=== PATIENT | female | born 2005 | race Caucasian/White ===

== ENCOUNTER 2023-04-29 11:31 | Outpatient (OUT) | payer OTHER, SELFPAY ==
--- NOTE | 2023-04-29 11:48 | XR_ITS ---
The [address] [address] Patient Name: LOUIS MONROE MRN: [id number] date: 2005 Sex: F Assigned Patient Location: [facility] Current Patient Location: [facility] Accession/Order Number: [id number] Exam Date: 04/29/2023 11:51 Report Date: 04/29/2023 12:10 At the request of: SHAIKH DION Procedure: XR chest 2V EXAM: XR chest 2V HISTORY: Respiratory Illness J98.9 . Cough, shortness of breath and congestion for the past month. COMPARISON: 01/13/2020 TECHNIQUE: Upright PA and lateral chest x-ray FINDINGS: The heart is not enlarged and the vasculature is not distended. No acute infiltrate, effusion or pneumothorax is identified. The osseous structures are grossly intact. XR/XR chest 2V IMPRESSION: No acute infiltrate or evidence of cardiac decompensation. The overall appearance of the chest is unchanged. Electronically authenticated by: DOMENIC GREENE Date: 04/29/2023 12:10
== END 2023-04-29 11:32 | disposition home or self-care (01) ==
LOC: RAD 11:40
PROVIDERS: PCP Family Medicine; Visit Provider Internal Medicine
DX: J98.9 Respiratory disorder, unspecified (principal)
CPT/HCPCS: 71046

== ENCOUNTER 2024-07-01 10:16 | Outpatient (OUT) | payer OTHER, SELFPAY ==
--- OUTSIDE RECORDS SUMMARY | 2024-07-01 10:22 | XMS_ITS | CCD ---
Author Organization [facility] Care Team Providers Care Photoradio Operator Name Role Phone DR RENÉ HARO Primary Care Unavailable SONJA, DR GUTIÉRREZ Attending Unavailable SONJA, DR GUTIÉRREZ Consulting Unavailable SONJA, DR GUTIÉRREZ Admitting Unavailable TIM BARRETT Consulting Unavailable Nadia Luciaon Unavailable René Haro MD Primary Care Provider PARADISE VAZQUEZ Attending Unavailable PARADISE VAZQUEZ Attending Unavailable GRACE TORREZ Attending Unavailable GRACE TORREZ Attending Unavailable PARAIDSE VAZQUEZ Attending Unavailable PARADISE VAZQUEZ Attending Unavailable Allergies Allergy Classification Reported Allergen(s) Allergy Type Date of Onset Reaction(s) Facility (1 source) Levalbuterol Drug Allergy 01-13-20 [facility] (1 source) Penicillins Drug allergy (disorder) 01-13-20 20 [facility] (1 source) Sulfonamides (Antibiotic) Drug allergy (disorder) 01-13-20 20 [facility] (7 sources) Levalbuterol Drug Allergy 10-28-19 17 [facility] (7 sources) Penicillin G Drug Allergy 11-02-[address] [facility] (5 sources) Sulfamethoxazole / Trimethoprim Drug Allergy 07-05-19 24 [facility] Other (6 sources) Sulfamethoxazole Drug Allergy 11-02-19 [facility] (6 sources) Trimethoprim Drug Allergy 11-02-19 [facility] (4 sources) Spironolactone Drug Allergy 07-19-19 GI intolerance, Dizziness [facility] Work Phone: Medications Current Medications Medication Drug Class(es) Dates Sig (Normalized) Sig (Original) [id number] 200 actuat albuterol 0.09 mg/actuat metered dose inhaler (1 source) beta2-Adrenergic Agonist Start: 04-24-2023 take 2 puff(s) by inhalation four times daily as needed Albuterol Sulfate HFA 108 (90 Base) MCG/ACT 2 puffs Inhalation 4 times a day prn Patient understands she will only use this when absolutely necessary, her reaction to albuterol is a severe anxiety Apr, Active benzonatate 200 mg oral capsule (1 source) Non-narcotic Antitussive Start: 04-24-2023 take 1 capsule by mouth every eight hours Benzonatate 200 MG 1 capsule Orally Three times a day Apr, Active benzoyl peroxide 0.05 mg/mg topical gel (4 sources) benzoyl peroxide 5 % gel Apply topically Daily Active clindamycin 0.01 mg/mg topical gel (4 sources) Lincosamide Antibacterial Start: 01-14-2024 clindamycin (Clindagel) 1 % gel Indications: Acne vulgaris Apply topically Daily before meals 60 g 01/14/2024 Active dextromethorphan hydrobromide 15 mg / guaiFENesin 400 mg / pseudoephedrine hydrochloride 60 mg oral tablet (1 source) alpha-Adrenergic Agonist, Uncompetitive C-azfozb-K-aspartat e Receptor Antagonist, Sigma-1 Agonist Start: 03-27-2024 take 4 tablets by mouth every twenty-four hours Pseudoephedrine- Dm-Guaifenesin (Capmist Dm) 60-15-400 mg tablet Active 1 TAB PO EVERY 4-6 HOURS March 27, 2024 12:00am do not exceed 4 doses per 24 hrs doxycycline monohydrate 100 mg oral capsule (6 sources) Tetracycline-class Drug Start: 03-27-2024 take 100 mg by mouth once daily Doxycycline Monohydrate Active 100 MG PO Daily March 27, 2024 12:00am Start: 01-14-2024 take 1 capsule by mo [facility] twice daily doxycycline (Monodox) 100 MG capsule Indications: Acne vulgaris Take 1 capsule, by mouth, bid, 30 days 60 capsule 11 01/14/2024 Active Start: 04-24-2023 take 1 tablet by [facility] every twelve hours Doxycycline Hyclate 100 MG 1 tablet Orally Twice a day for 10 day(s) Apr, Active ferrous gluconate 324 mg oral tablet (6 sources) Start: 11-02-2023 take 324 mg by mouth once daily Ferrous Gluconate Active 324 MG PO Daily November 02, 2023 12:00am FLUoxetine 10 mg oral capsule (7 sources) Serotonin Reuptake Inhibitor Start: 11-02-2023 take 1 capsule by mouth once daily FLUoxetine (PROzac) 10 MG capsule Indications: Anxiety TAKE 1 CAPSULE BY MOUTH DAILY 90 capsule 3 01/14/2024 Active take 1 capsule by mo [facility] every twenty-four hours PROzac 10 MG 1 capsule Orally Once a day Active Iron (1 source) take 1 tablet by mouth once daily Iron 240 (27 Fe) MG 1 tablet Orally once a day Active predniSONE 20 mg oral tablet (2 sources) Start: 03-27-2024 take 20 mg by mouth twice daily Prednisone Active 20 MG PO Twice daily 03 18March 27, 2024 12:00am Start: 04-24-2023 take 1 tablet by sofya every twelve hours predniSONE 20 MG 1 tablet Orally bid for 5 day(s) Apr, Active tretinoin 0.25 mg/ml topical cream (4 sources) Retinoid Start: 01-14-2024 tretinoin (Ret in-A) 0.025 % cream Indications: Acne Vulgaris Apply 1 application topically at bedtime 45 g 11 01/14/2024 Active Completed/Discontinued Medications Medication Drug Class(es) Dates Sig (Normalized) Sig (Original) fluticasone propionate 0.05 mg/actuat metered dose nasal spray (1 source) Corticosteroid Start: 04-10-2023 take 2 spray(s) nasal route once daily Fluticasone Propionate 50 MCG/ACT 2 sprays Nasally Once a day for 14 day(s) Mar, Not-Taking minocycline 100 mg oral capsule (2 sources) Tetracycline-class Drug Start: 11-02-2023 End: 03-27-2024 take 100 mg by mouth twice daily Minocycline Discontinued 100 MG PO Twice daily November 02, 2023 12:00am March 27, 2024 12:29pm Problems Problem Classification Problem Date Documented Da te Episodic/Chronic Abdominal pain (1 source) Unspecified abdominal pain; Translations: [UNSPECIFIED ABDOMINAL PAIN] Onset: 12-16-2021 Episodic Anxiety disorders (2 sources) Generalized anxiety disorder; Translations: [Generalized anxiety disorder] Onset: 06-29-2024 06-29-2024 Chronic Asthma (1 source) Exacerbation of asthma; Translations: [Unspecified asthma with (acute) exacerbation] Chronic Chronic obstructive pulmonary disease and bronchiectasis (1 source) Bronchitis, not specified as acute or chronic Episodic Deficiency and other anemia (4 sources) Iron deficiency anemia; Translations: [Iron deficiency anemia, unspecified] Onset: 06-29-2024 06-29-2024 Episodic Esophageal disorders (1 source) Gastro-esophageal reflux disease without esophagitis; Translations: [GERD WITHOUT ESOPHAGITIS] Onset: 12-16-2021 Chronic Immunizations and screening for infectious disease (1 source) Contact with or exposure to other viral diseases; Translations: [Exposure to 2019 novel coronavirus] 03-27-2024 Episodic Malaise and fatigue (1 source) Other fatigue; Translations: [OTHER FATIGUE] Onset: 12-16-2021 Episodic Mood disorders (2 sources) Recurrent major depressive episodes, mild ; Translations: [Major depressive disorder, recurrent, mild] Onset: 06-29-2024 06-29-2024 Chronic Nausea and vomiting (3 sources) Nausea with vomiting, unspecified; Translations: [NAUSEA WITH VOMITING UNSPECIFIED] Onset: 12-11-2021 Episodic Other gastrointestinal disorders (1 source) Constipation, unspecified; Translations: [CONSTIPATION UNSPECIFIED] Onset: 12-16-2021 Episodic Other nervous system disorders (4 sources) Disorder of autonomic nervous system; Translations: [Disorder of the autonomic nervous system, unspecified] Onset: 06-29-2024 06-29-2024 Chronic Other non-traumatic joint disorders (4 sources) Joint pain; Translations: [Pain in unspecified joint] Onset: 06-29-2024 06-29-2024 Episodic Other skin disorders (2 sources) Acne vulgaris; Translations: [Acne vulgaris] Onset: 06-29-2024 06-29-2024 Episodic Other upper respiratory disease (1 source) Allergic rhinitis; Translations: [Allergic rhinitis, unspecified] Chronic Other upper respiratory infections (3 sources) Viral upper respiratory tract infection; Translations: [Acute upper respiratory infection, unspecified] 11-02-2023 Episodic Unclassified (1 source) CONTACT W/AND (SUSP) EXPOS COVID-19; Translations: [CONTACT W/AND (SUSP) EXPOS COVID-19] Onset: 12-16-2021 Results Test Name Value Interpretation Reference Range Facility No Panel InformationOrdered By: Romelia Kirk on 11-02-2023 Quick Strep (POC) [facility] CBC AUTO DIFFon 12-11-2021 BASO # 0.0 103/ul Normal 0.0-0.1 [facility] Comment on above: Performed By: #### C BC #### [facility] [address] [address] [address] Delphine Small Basophils/100 WBC (Bld) 0.5 % Normal 0.2-2.0 [facility] Comment on above: Performed By: #### C BC #### [facility] [address] [place] [address] Dr. Delphine Small EO # 0.2 103/ul Normal 0.0-0.7 [facility] Comment on above: Performed By: #### C BC #### [facility] [address] [address] [address] Delphine Small Eosinophils/100 WBC (Bld) 2.6 % Normal 0.9-7.0 [facility] Comment on above: Performed By: #### C BC #### [facility] [address] [place] [address] Dr. Delphine Small Erythrocyte distribution width (RBC) [Ratio] 11.6 % Normal 11.0-15.0 [facility] Comment on above: Performed By: #### C BC #### [facility] [address] [place] [address] Dr. Delphine Small Hematocrit (Bld) [Volume fraction] 38.6 % Normal 36.0-48.0 [facility] Comment on above: Performed By: #### C BC #### [facility] [address] [place] [address] Dr. Delphine Small Hemoglobin (Bld) [Mass/Vol] 13.1 g/dL Normal 12.0-16.0 [facility] Comment on above: Performed By: #### C BC #### [facility] [address] [place] [address] Dr. Delphine Small IG # 0.01 10e3/ul Normal 0.00-0.03 [facility] Comment on above: Performed By: #### C BC #### [facility] [address] [place] [address] Dr. Delphine Small IG % 0.2 % Normal 0.0-0.5 [facility] Comment on above: Performed By: #### C BC #### [facility] [address] [place] [address] Dr. Delphine Small LYMPH # 2.7 103/ul Normal 1.2-3.8 [facility] Comment on above: Performed By: #### C BC #### [facility] [address] [place] [address] Dr. Delphine Small Lymphocytes/100 WBC (Bld) 44.0 % Normal 20.5-60.0 [facility] Comment on above: Performed By: #### C BC #### [facility] [address] [place] [address] Dr. Delphine Small MANUAL DIFF REQ NO Normal [facility] Comment on above: Performed By: #### C BC #### [facility] [address] [place] [address] Dr. Delphine Small MCH (RBC) [Entitic mass] 30.2 pg Normal 26.7-34.0 [facility] Comment on above: Performed By: #### C BC #### [facility] [address] [place] [address] Dr. Delphine Small MCHC (RBC) [Mass/Vol] 33.9 g/dL Normal 29.9-35.2 [facility] Comment on above: Performed By: #### C BC #### [facility] [address] [place] [address] Dr. Delphine Small MCV (RBC) [Entitic vol] 88.9 fL Normal 81.0-99.0 [facility] Comment on above: Performed By: #### C BC #### [facility] [address] [place] [address] Dr. Delphine Small MONO # 0.4 103/ul Normal 0.3-0.8 [facility] Comment on above: Performed By: #### C BC #### [facility] [address] [place] [address] Dr. Delphine Small Monocytes/100 WBC (Bld) 6.9 % Normal 1.7-12.0 [facility] Comment on above: Performed By: #### C BC #### [facility] [address] [place] [address] Dr. Delphine Small NEUT # 2.9 103/ul Normal 1.4-6.5 [facility] Comment on above: Performed By: #### C BC #### [facility] [address] [place] [address] Dr. Delphine Small Neutrophils/100 WBC (Bld) 45.8 % Normal 43.0-75.0 [facility] Comment on above: Performed By: #### C BC #### [facility] [address] [place] [address] Dr. Delphine Small Platelet mean volume (Bld) [Entitic vol] 9.7 fL Normal 9.5-13.5 [facility] Comment on above: Performed By: #### C BC #### [facility] [address] [place] [address] Dr. Delphine Small PLT 182 103/ul Normal 150-450 [facility] Comment on above: Performed By: #### C BC #### [facility] [address] [place] [address] Dr. Delphine Small RBC 4.34 106/ul Normal 4.20-5.40 [facility] Comment on above: Performed By: #### C BC #### [facility] [address] [place] [address] Dr. Delphine Small WBC 6.2 103/ul Normal 4.0-11.0 [facility] Comment on above: Performed By: #### C BC #### [facility] [address] [place] [address] Dr. Delphine Small [facility] SARS-CoV-2 (COVID-19) RNA RUDY+probe Ql (Unsp spec) Not detected Normal NOT DETECTED [facility] Comment on above: Result Comment: When diagnostic testing is negative, the possibility of a false negative should be considered in the context of a patient's recent exposures and the presence of clinical signs and symptoms consistent with SARS-CoV-2. This test is not yet approved or cleared by the [place] FDA. When there are no FDA-approved or cleared tests available, and other criteria are met, FDA can make tests available under an emergency access mechanism called an Emergency Use Authorization (EUA). The EUA for this test is supported by the [place] of Health and Human Service's declaration that circumstances exist to justify the emergency use of in vitro diagnostics for the detection and/or diagnosis of the virus that causes COVID-19. This EUA will remain in effect for the duration of the COVID-19 declaration justifying emergency of IVDs, unless it is terminated or revoked by the FDA (after which the test may no longer be used). Performed By: #### C VDTB #### [facility] [address] [place] [address] Dr. Delphine Small PROF 14(COMP METB)on 022 Albumin [Mass/Vol] 3.8 g/dL Normal 3.4-5.0 [facility] Comment on above: Performed By: #### C MP #### [facility] [address] [place] [address] Dr. Delphine Small Albumin/Globulin [Mass ratio] 1.1 {ratio} Normal [facility] Comment on above: Performed By: #### C MP #### [facility] [address] [place] [address] Dr. Delphine Small ALP [Catalytic activity/Vol] 77 U/L Normal 46-116 [facility] Comment on above: Performed By: #### C MP #### [facility] [address] [place] [address] Dr. Delphine Small ALT [Catalytic activity/Vol] 24 U/L Normal 14-59 [facility] Comment on above: Performed By: #### C MP #### [facility] [address] [place] [address] Dr. Delphine Small Anion gap [Moles/Vol] 11.8 mmol/L Normal [facility] Comment on above: Performed By: #### C MP #### [facility] [address] [address] [address] Delphine Small AST [Catalytic activity/Vol] 16 U/L Normal 15-37 [facility] Comment on above: Performed By: #### C MP #### [facility] [address] [address] [address] Delphine Small Bilirubin [Mass/Vol] 0.8 mg/dL Normal 0.2-1.0 [facility] Comment on above: Performed By: #### C MP #### [facility] [address] [address] [address] Delphine Small Calcium [Mass/Vol] 8.6 mg/dL Normal 8.5-10.1 [facility] Comment on above: Performed By: #### C MP #### [facility] [address] [address] [address] Delphine Small Chloride [Moles/Vol] 103 mmol/L Normal 98-107 [facility] Comment on above: Performed By: #### C MP #### [facility] [address] [address] [address] Delphine Small CO2 [Moles/Vol] 27.8 mmol/L Normal 21.0-32.0 [facility] Comment on above: Performed By: #### C MP #### [facility] [address] [address] [address] Delphine Small Creatinine [Mass/Vol] 0.70 mg/dL Normal 0.55-1.02 [facility] Comment on above: Performed By: #### C MP #### [facility] [address] [address] [address] Delphine Small EGFR-AF JORDANIAN >60 Normal >=60 [facility] Comment on above: Performed By: #### C MP #### [facility] [address] [address] [address] Delphine Small EGFR-NON AF JORDANIAN >60 Normal >=60 [facility] Comment on above: Performed By: #### C MP #### [facility] [address] [address] [address] Delphine Small Globulin (S) [Mass/Vol] 3.6 g/dL Normal T [facility] Comment on above: Performed By: #### C MP #### [facility] [address] [address] [address] Delphine Small Glucose [Mass/Vol] 94 mg/dL Normal 74-106 [facility] Comment on above: Performed By: #### C MP #### [facility] [address] [address] [address] Delphine Small Potassium [Moles/Vol] 3.6 mmol/L Normal 3.5-5.1 [facility] Comment on above: Performed By: #### C MP #### [facility] [address] [address] [address] Delphine Small Protein [Mass/Vol] 7.4 g/dL Normal 6.4-8.2 [facility] Comment on above: Performed By: #### C MP #### [facility] [address] [address] [address] Delphine Small Sodium [Moles/Vol] 139 mmol/L Normal 136-145 [facility] Comment on above: Performed By: #### C MP #### [facility] [address] [address] [address] Delphine Small Urea nitrogen [Mass/Vol] 10.0 mg/dL Normal 6.4-19.3 [facility] Comment on above: Performed By: #### C MP #### [facility] [address] [address] [address] Delphine Small Urea nitrogen/Creatinine [Mass ratio] 14.3 mg/mg Normal [facility] Comment on above: Performed By: #### C MP #### [facility] [address] [address] [address] Delphine Small XR ABD FLAT UP_PA Osbaldo 12-11 XR ABD FLAT UP_PA CH ACUTE ABDOMINAL SERIES HISTORY: Abdominal pain TECHNIQUE: A single view of the chest and 2 views of the abdomen and pelvis are submitted for review. COMPARISON: None. FINDINGS: Chest x-ray: The lungs are adequately expanded. Interstitial opacity in the right lower lobe. There is no evidence for effusion. The cardiomediastinal silhouette measures within normal limits. Pulmonary vascularity is unremarkable. Osseous structures are within normal limits for age.. Abdomen: There is no evidence of free air.. The bowel gas pattern is nonobstructive. There are no abnormal calcifications. Osseous structures are within normal limits. IMPRESSION: Chest x-ray: Airspace opacity in the right lower lobe. Please correlate for pneumonia versus atelectasis. Abdomen: 1. Nonobstructive bowel gas pattern. 2. Moderateretention of stool. Electronically authenticated by: TIM BARRETT Date: 2021-12-11 21:29 Normal [facility] Vital Signs Date Time Vital Sign Value Performing Clinician Facility 06-29-2024 13:15-0500 Body mass index (BMI) [Ratio] 29.74 kg/m2 René Haro MD Work Phone: [facility] 06-29-2024 13:15-0500 Body temperature 97.3 [degF] René Haro MD Work Phone: [facility] 06-29-2024 13:15-0500 Body weight 72.58 kg René Haro MD Work Phone: [facility] 06-29-2024 13:15-0500 Diastolic blood pressure 64 mm[Hg] René Haro MD Work Phone: [facility] 06-29-2024 13:15-0500 Heart rate 83 /min René Haro MD Work Phone: [facility] 06-29-2024 13:15-0500 SaO2% (BldA) [Mass fraction] 100 % René Haro MD Work Phone: [facility] 06-29-2024 13:15-0500 Systolic blood pressure 102 mm[Hg] René Haro MD Work Phone: [facility] 03-27-2024 12:26-0400 Body height 157.48 cm [facility] 03-27-2024 12:26-0400 Body mass index (BMI) [Ratio] 28.3 kg/m2 [facility] 03-27-2024 12:26-0400 Body temperature 98.2 [degF] [facility] 03-27-2024 12:26-0400 Body weight 70.3 kg [facility] 03-27-2024 12:26-0400 Diastolic blood pressure 71 mm[Hg] [facility] 03-27-2024 12:26-0400 Heart rate 80 /min [facility] 03-27-2024 12:26-0400 Respiratory rate 18 /min [facility] 03-27-2024 12:26-0400 SaO2% (BldA) [Mass fraction] 99 % [facility] 03-27-2024 12:26-0400 Systolic blood pressure 101 mm[Hg] [facility] 11-02-2023 18:09-0400 Body height 157.48 cm [facility] 11-02-2023 18:09-0400 Body mass index (BMI) [Ratio] 28.2 kg/m2 [facility] 11-02-2023 18:09-0400 Body temperature 99 [degF] [facility] 11-02-2023 18:09-0400 Body weight 69.96 kg [facility] 11-02-2023 18:09-0400 Heart rate 115 /min [facility] 11-02-2023 18:09-0400 Respiratory rate 18 /min [facility] 11-02-2023 18:09-0400 SaO2% (BldA) [Mass fraction] 98 % [facility] 04-24-2023 12:35-0500 Body height 157.48 cm Nadia Luciano Other [employer] Other 04-24-2023 12:35-0500 Body mass index (BMI) [Ratio] 26.48 kg/m2 Nadia Luciano Other [employer] Other 04-24-2023 12:35-0500 Body temperature 98.1 [degF] Nadia Luciano Other [employer] Other 04-24-2023 12:35-0500 Body weight 65.68 kg Nadia Luciano Other [employer] Other 04-24-2023 12:35-0500 Respiratory rate 18 /min Nadia Luciano Other [employer] Other 04-24-2023 12:35-0500 SaO2% (BldA) [Mass fraction] 97 % Nadia Luciano Other [employer] Other Encounters Encounter Date Encounter Type Care Provider Facility Start: 06-29-2024 End: 06-29-2024 Bamboo flowsheet René Haro MD Work Phone: [facility] Start: 06-29-2024 End: 06-29-2024 Bamboo flowsheet René Haro MD Work Phone: [facility] Start: 06-29-2024 End: 06-29-2024 Office outpatient visit 25 minutes René Haro MD Work Phone: [facility] Comment on above: Autonomic dysfunctio n (Primary Dx); Arthralgia, unspecified joint; Iron deficiency anemia, unspecified iron deficiency anemia type; Annual physical exam Start: 06-29-2024 End: 06-29-2024 Patient encounter procedure René Haro MD Work Phone: [facility] Start: 05-15-2024 End: 05-15-2024 Bamboo flowsheet Paradise SANTANA Work Phone: [facility] Start: 05-15-2024 End: 05-15-2024 Bamboo flowsheet Paradise SANTANA Work Phone: [facility] Start: 05-15-2024 End: 05-15-2024 ambulatory PARADISE VAZQUEZ Not Available Start: 03-27-2024 End: 03-27-2024 ambulatory [facility] Work Phone: Start: 03-27-2024 End: 03-27-2024 Patient encounter procedure [facility] Physician [facility] Work Phone: Start: 01-14-2024 End: 01-14-2024 ambulatory PARADISE L ELISA Not Available Start: 12-09-2023 End: 12-09-2023 ambulatory GRACE TORREZ Not Available Start: 11-17-2023 End: 11-17-2023 ambulatory GRACE TORREZ Not Available Start: 11-02-2023 End: 11-02-2023 ambulatory [facility] Work Phone: Start: 11-02-2023 End: 11-02-2023 Patient encounter procedure [facility] Work Phone: Start: 10-04-2023 End: 10-04-2023 ambulatory PARADISE VAZQUEZ Not Available Start: 07-05-2023 End: 07-05-2023 ambulatory PARADISE L ELISA Not Available Start: 04-24-2023 End: 04-24-2023 ambulatory Nadia Luciano Other [facility] Other Start: 04-24-2023 Office outpatient vi sit 15 minutes Nadia Luciano [facility] Start: 12-11-2021 End: 12-12-[address] RENÉ HARO Facility:H1 Procedures Date Procedure Procedure Detail Performing Clinician Start: 11-02-2023 Quick Strep (POC) Plan of Treatment Date Care Activity Detail Author Start: 12-04-2024 End: 12-04-2024 Patient encounter procedure 12/04/2024 10:30 AM EDT Office Visit [facility] [address] [place] [phone] Paradise Vazquez, PA [address] [place] [address] [facility] Start: 06-29-2024 End: 06-29-2025 Basic metabolic 1998 panel - Serum or Plasma Basic metabolic panel Lab Routine Arthralgia, unspecified joint Annual physical exam Expected: 06/29/2024 (Approximate), Expires: 06/29/[address] [facility] Comment on above: Expected: 06/29/2024 (Approximate), Expires: 06/29/2025 Start: 06-29-2024 End: 06-29-2025 CBC W Auto Differential panel - Blood CBC and differential Lab Routine Annual physical exam Expected: 06/29/2024 (Approximate), Expires: 06/29/[address] [facility] Comment on above: Expected: 06/29/2024 (Approximate), Expires: 06/29/2025 Start: 06-29-2024 End: 06-29-2025 Erythrocyte sedimentation rate Sedimentation rate, automated Lab Routine Arthralgia, unspecified joint Expected: 06/29/2024 (Approximate), Expires: 06/29/[address] [facility] Work Phone: Comment on above: Expected: 06/29/2024 (Approximate), Expires: 06/29/2025 Start: 06-29-2024 End: 06-29-2025 Ferritin [Mass/volume] in Serum or Plasma Ferritin Lab Routine Iron deficiency anemia, unspecified iron deficiency anemia type Expected: 06/29/2024 (Approximate), Expires: 06/29/[address] [facility] Comment on above: Expected: 06/29/2024 (Approximate), Expires: 06/29/2025 Start: 06-29-2024 End: 06-29-2025 Hepatic function 2000 panel - Serum or Plasma Hepatic function panel Lab Routine Annual physical exam Expected: 06/29/2024 (Approximate), Expires: 06/29/[address] [facility] Comment on above: Expected: 06/29/2024 (Approximate), Expires: 06/29/2025 Start: 06-29-2024 End: 06-29-2025 Iron and Iron binding capacity panel - Serum or Plasma Iron and TIBC Lab Routine Iron deficiency anemia, unspecified iron deficiency anemia type Expected: 06/29/2024 (Approximate), Expires: 06/29/2025 [facility] Comment on above: Expected: 06/29/2024 (Approximate), Expires: 06/29/2025 Start: 06-29-2024 End: 06-29-2025 Nuclear Ab [Titer] in Serum by Immunofluorescence NGOZI Lab Routine Arthralgia, unspecified joint Expected: 06/29/2024 (Approximate), Expires: 06/29/2025 [facility] Comment on above: Expected: 06/29/2024 (Approximate), Expires: 06/29/2025 Start: 06-29-2024 End: 06-29-2025 Rheumatoid factor [Units/volume] in Serum or Plasma Rheumatoid factor Lab Routine Arthralgia, unspecified joint Expected: 06/29/2024 (Approximate), Expires: 06/29/2025 [facility] Comment on above: Expected: 06/29/2024 (Approximate), Expires: 06/29/2025 Start: 06-29-2024 End: 06-29-2025 TSH W/REFLEX TO FT4 TSH W/REFLEX TO FT4 Lab Routine Annual physical exam Expected: 06/29/2024 (Approximate), Expires: 06/29/2025 [facility] Comment on above: Expected: 06/29/2024 (Approximate), Expires: 06/29/2025 Start: 06-29-2024 End: 06-29-2025 Urate [Mass/volume] in Serum or Plasma Uric acid Lab Routine Arthralgia, unspecified joint Expected: 06/29/2024 (Approximate), Expires: 06/29/2025 [facility] Comment on above: Expected: 06/29/2024 (Approximate), Expires: 06/29/2025 Start: 06-29-2024 End: 06-29-2024 Patient encounter procedure 06/29/2024 1:15 PM EST Office Visit [facility] [address] [place] [address] René Haro MD [address] [place] [address] Arrived [facility] Comment on above: Arrived Start: 02-13-2024 Influenza vaccination Influenza Vacc ine (#1) [facility] Immunizations Immunization Date Immunization Notes Care Provider Fa cility 11-28-2019 meningococcal oligosaccharide (groups A, C, Y and W-135) diphtheria toxoid conjugate vaccine (MCV4O) Paradise SANTANA Work Phone: [facility] 06-27-2015 hepatitis A vaccine, pediatric/adolescent dosage, 2 dose schedule Paradise Vazquez PA Work Phone: [facility] 12-25-2014 hepatitis A vaccine, pediatric/adolescent dosage, 2 dose schedule Paradise SANTANA Work Phone: [facility] 12-25-2014 meningococcal oligosaccharide (groups A, C, Y and W-135) diphtheria toxoid conjugate vaccine (MCV4O) Paradise SANTANA Work Phone: [facility] 12-25-2014 tetanus toxoid, redu law diphtheria toxoid, and acellular pertussis vaccine, adsorbed Paradise Vazquez PA Work Phone: [facility] 12-25-2014 varicella virus vaccine Jessa Vazquez PA Work Phone: [facility] 04-21-2013 influenza virus vacc ine, live, attenuated, for intranasal use Paradise SANTANA Work Phone: [facility] 04-21-2013 influenza virus vacc ine, unspecified formulation Paradise SANTANA Work Phone: [facility] 11-15-2007 diphtheria, tetanus toxoids and acellular pertussis vaccine Paradise Vazquez PA Work Phone: [facility] 11-15-2007 poliovirus vaccine, inactivated Paradise SANTANA Work Phone: [facility] 10-11-2004 diphtheria, tetanus toxoids and acellular pertussis vaccine, unspecified formulation Paradise Vazquez PA Work Phone: [facility] 10-11-2004 measles, mumps and r ubella virus vaccine Paradise SANTANA Work Phone: [facility] 07-11-2004 haemophilus influenz ae type b vaccine, conjugate unspecified formulation Paradise Vazquez PA Work Phone: [facility] 07-11-2004 measles, mumps and r ubella virus vaccine Paradise Vazquez PA Work Phone: [facility] 04-04-2004 varicella virus vaccine Jessa Vazquez PA Work Phone: [facility] 2003 diphtheria, tetanus toxoids and acellular pertussis vaccine, unspecified formulation Paradise Vazquez PA Work Phone: [facility] 2003 haemophilus influenz ae type b vaccine, conjugate unspecified formulation Paradise Vazquez PA Work Phone: [facility] 2003 hepatitis B vaccine, pediatric or pediatric/adolescent dosage Paradise Vazquez PA Work Phone: [facility] 2003 poliovirus vaccine, unspecified formulation Paradise Vazquez PA Work Phone: [facility] 2003 diphtheria, tetanus toxoids and acellular pertussis vaccine, unspecified formulation Paradise Vazquez PA Work Phone: [facility] 2003 haemophilus influenz ae type b vaccine, conjugate unspecified formulation Paradise Vazquez PA Work Phone: [facility] 2003 pneumococcal conjuga te vaccine, 7 valent Paradisehuey Vazquez PA Work Phone: [facility] 2003 poliovirus vaccine, unspecified formulation Paradise Pedersonans PA Work Phone: [facility] 2003 diphtheria, tetanus toxoids and acellular pertussis vaccine, unspecified formulation Paradise Elisa PA Work Phone: [facility] 2003 haemophilus influenz ae type b vaccine, conjugate unspecified formulation Paradise Elisa PA Work Phone: [facility] 2003 hepatitis B vaccine, pediatric or pediatric/adolescent dosage Paradisehuey Pedersonans PA Work Phone: [facility] 2003 pneumococcal conjuga te vaccine, 7 valent Paradise SANTANA Work Phone: [facility] 2003 poliovirus vaccine, unspecified formulation Paradise SANTANA Work Phone: [facility] 2003 hepatitis B vaccine, pediatric or pediatric/adolescent dosage Paradise SANTANA Work Phone: [facility] Payers Date Payer Category Payer Private Health Insurance [facility] [id number] 2022 Unknown [id number] 2003 Unknown [id number] 2003 Unknown [id number] 2003 Unknown [id number] [id number] 2003 Unknown [id number] [id number] 2003 Unknown [id number] [id number] 2003 Unknown [id number] [id number] 1978 Unknown [id number] 1959 Unknown [id number] Medicaid [employer] [id number] Social History Date Type Detail Facility Unknown if ever smoked [facility] Other Start: 01-14-2024 End: 06-29-2024 Sex Assigned At [facility] [employer] Other Start: 07-05-2023 End: 11-02-2023 Tobacco smoking status NHIS Never smoked tobacco (finding) [facility] Start: 2003 Sex Assigned At Female F [facility] Start: 07-05-2023 Tobacco use and exposure Smokeless tobacco non-user [facility] Start: 01-14-2024 End: 06-29-2024 Alcoholic beverage intake Lifetime non-drinker (finding) [facility] Start: 01-14-2024 End: 06-29-2024 History of Social function [facility] Start: 2003 Sex assigned at Not on file [facility] History of Present illness Narrative 06-29-2024 René Haro MD - 06/29/2024 2:00 PM Daija Haro MD - 06/29/2024 2:00 PM Daija Haro MD - 06/29/2024 1:15 PM EST Note Date & Type Note Facility 06-29-2024 History of Presen t illness Narrative Associated Problem(s): Arthralgia Severe pain and unclear etiology. Check labs. Use OTC PRN. Associated Problem(s): Autonomic dysfunction Describing autonomic dysfunction and likely NCS. Increased fluid and salt intake. Be cautious with position changes. If worsens can try florinef. Images from the original note were not included. Subjective Patient ID: Annette Malcolm is a 19 y.o. female who presents for Dizziness (Losing balance ) and Extremity Weakness (In legs and hands ). C/o dizzy spells for about a year but worse over past few weeks. No sensation of motion of spinning. Feels very lightheaded like will pass out. At times feels like shutting down and can have vision changes such as slanted vision or black on sides of vision. Episodes typically occur when standing or walking. Few times have noticed while sitting. Episodes typically last few seconds to several minutes. Not notice heart racing or skipping during an episode. 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 C/o increased pain all over. Pain in arms, legs, back, and neck. Pain worse at night and if laying down. Not tried OTC. Review of Systems Respiratory: Negative for cough, shortness of breath and wheezing. Cardiovascular: Negative for chest pain and palpitations. Gastrointestinal: Negative for abdominal pain, diarrhea, nausea and vomiting. Genitourinary: Negative for dysuria. Objective Physical Exam Constitutional: General: She is not in acute distress. Appearance: Normal appearance. HENT: Head: Normocephalic. Right Ear: Tympanic membrane normal. Left Ear: Tympanic membrane normal. Eyes: Extraocular Movements: Extraocular movements intact. Pupils: Pupils are equal, round, and reactive to light. Cardiovascular: Rate and Rhythm: Normal rate and regular rhythm. Heart sounds: No murmur heard. No friction rub. No gallop. Pulmonary: Effort: Pulmonary effort is normal. Breath sounds: Normal breath sounds. No wheezing, rhonchi or rales. Abdominal: General: Bowel sounds are normal. There is no distension. Palpations: Abdomen is soft. Tenderness: There is no abdominal tenderness. There is no guarding or rebound. Musculoskeletal: Cervical back: Neck supple. Right lower leg: No edema. Left lower leg: No edema. Neurological: Mental Status: She is alert. Assessment/Plan Problem List Items Addressed This Visit Arthralgia Severe pain and unclear etiology. Check labs. Use OTC PRN. Relevant Orders Sedimentation rate, automated NGOZI Rheumatoid factor Basic metabolic panel Uric acid Autonomic dysfunction - Primary Describing autonomic dysfunction and likely NCS. Increased fluid and salt intake. Be cautious with position changes. If worsens can try florinef. Iron deficiency anemia Relevant Orders Iron and TIBC Ferritin Other Visit Diagnoses Annual physical exam Relevant Orders Basic metabolic panel CBC and differential Hepatic function panel TSH W/REFLEX TO FT4 documented in this encounter [facility] Evaluation note 04-24-2023 Note Date & Type Note Facility 04-24-2023 Evaluation note Encounter Date Diagnosis Assessment Notes Apr, Bronchitis (ICD-10 - J40) Acute bronchitis home care material was printed Plenty fluids, get plenty of rest. Continue home medications as prescribed. Take the doxycycline and prednisone as prescribed until gone. Use your albuterol inhaler as prescribed for severe shortness of breath or cough. Take the benzonatate capsules as prescribed as needed for cough. Take Tylenol or Motrin as needed for aches pains or fevers. Follow-up with your family physician if no improvement in 2 to 3 days [employer] Other Chief complaint+Reason for visit Narrative Note Date & Type Note Facility Chief complaint+Reason for v isit Narrative Reason for Visit Contact with and (suspected) exposure to covid-19 [facility] Work Phone: Evaluation note Note Date & Type Note Facility Evaluation note Diagnosis Onset Date Viral URI with cough acute [facility] Work Phone: Evaluation note Note Date & Type Note Facility Evaluation note Diagnosis Onset Date Contact with and (suspected) exposure to covid-19 noneactive [facility] Work Phone: Evaluation note Note Date & Type Note Facility Evaluation note Diagnosis Autonomic dysfunction- Primary Arthralgia, unspecified joint Iron deficiency anemia, unspecified iron deficiency anemia type Annual physical exam Routine general medical examination at a health care facility documented in this encounter [facility] History general Narrative - Reported Note Date & Type Note Facility History general Narrative - Reported Type Medical History Gastroesophageal reflux disease Medical History Asthma Medical History iron deficiency Surgical History wisdom teeth Hospitalization History rotovirus, dehydration 2 003 [employer] Other Summary Purpose Family History No Family History Records FoundNo Family History Records Found Advance Directives Advance Directive Response Recorded Date/ Time Advance Directives No November 01 6:01pm Chief Complaint and Reason for Visit Chief Complaint Sore throat, ear stephania n, congestion Reason for Visit Viral URI with cough Additional Source Comments INFORMATION SOURCE (unrecogn ized section and content) DATE CREATED AUTHOR 01/11/2022 [facility] DATE CREATED AUTHOR AUTHOR'S ORGANDEEPA ATION 05/16/2024 [facility] EPIC REASON FOR VISIT (unrecogniz ed section and content) Reason Comments Dizziness Losing balance Extremity Weakness In legs and hands Care Teams (unrecognized sec tion and content) Team Status: Active Member Role Status Dates René Haro MD Primary Care Provider Active Team Status: Inactive Member Role Status Dates Romelia Kirk , KIGNSTON Attending Provider Active Start: November 02, 2023 End: November 02, 2023 René Haro MD Primary Care Provider Active S tart: November 02, 2023 End: November 02, 2023 Team Status: Inactive Member Role Status Dates René Haro MD Primary Care Provider Active S tart: March 27, 2024 End: March 27, 2024 Mahnaz Trivedi APRN Attending Provider Active Start: March 27, 2024 End: March 27, 2024 [employer] Operator Relationship Specialty Start Date End Date René Haro MD [address] [place] [phone] PCP - General Family Medicine 04/14/23 Photoradio Operator Relationship Specialty Start Date End Date René Haro MD [address] [place] [phone] PCP - General Family Medicine 04/14/23 [employer] Operator Relationship Specialty Start Date End Date René Haro MD [address] [place] [phone] PCP - General Family Medicine 04/14/23 Goals (unrecognized section and content) Goals may be documented in a n alternate section FOR RECORDS PERTAINING TO PATIENTS WHO ARE OR HAVE BEEN ENROLLED IN A CHEMICAL DEPENDENCY/SUBSTANCEABUSE PROGRAM, SOME INFORMATION MAY BE OMITTED. This clinical summary was aggregated from multiple sources. Caution should be exercised in using it in the provision of clinical care. This summary normalizes information from multiple sources, and as a consequence, information in this document may materially change the coding, format and clinical context of patient data. In addition, data may be omitted in some cases. CLINICAL DECISIONS SHOULD BE BASED ON THE PRIMARY CLINICAL RECORDS. [facility] [employer] [facility]. provides no warranty or guarantee of the accuracy or completeness of information in this document.
[2024-07-01 11:05] LABS: Basophils Absolute Auto 0.1 10^3/uL (0.0-0.1); Eosinophils Absolute Auto 0.5 10^3/uL (0.0-0.7); Eosinophils Percent Auto 7.2 % (0.9-7.0); Hematocrit 41.4 % (36.0-48.0); Hemoglobin 14.1 g/dL (12.0-16.0); Immature Granulocytes Abs Auto 0.02 10^3/uL (0.00-0.03); Immature Granulocytes Pct Auto 0.3 % (0.0-0.5); Lymphocytes Absolute Auto 2.4 10^3/uL (1.2-3.8); Mean Corpuscular HGB Conc 34.1 g/dL (29.9-35.2); Mean Corpuscular Hemoglobin 29.6 pg (26.7-34.0); Mean Corpuscular Volume 86.8 fL (81.0-99.0); Mean Platelet Volume 8.8 fL (9.5-13.5); Monocytes Absolute Auto 0.4 10^3/uL (0.3-0.8); Monocytes Percent Auto 5.5 % (1.7-12.0); Neutrophils Absolute Auto 3.7 10^3/uL (1.4-6.5); Platelet Count 229 10^3/uL (150-450); Red Blood Count 4.77 10^6/uL (4.20-5.40); Red Cell Distribution Width 11.6 % (11.0-15.0); White Blood Count 7.1 10^3/uL (4.0-11.0)
[2024-07-01 11:26] LABS: Erythrocyte Sedimentation Rate 18 mm/hr (<=20)
[2024-07-01 11:35] LABS: Percent Iron Saturation 31.6 %
[2024-07-01 11:48] LABS: Alanine Aminotransferase 59 U/L (14-59); Albumin Globulin Ratio 1.1; Albumin Level 4.2 g/dL (3.4-5.0); Alkaline Phosphatase 73 U/L (46-116); Anion Gap 13.2; Aspartate Amino Transferase 48 U/L (15-37); BUN Creatinine Ratio 13.5; Bilirubin Direct 0.2 mg/dL (0.0-0.2); Bilirubin Total 0.9 mg/dL (0.2-1.0); Calcium 9.5 mg/dL (8.5-10.1); Carbon Dioxide 29.3 mmol/L (21.0-32.0); Chloride 102 mmol/L (98-107); Estimated GFR (African America >60 (>=60 mL/min/1.73m^2); Estimated GFR (Non-African Ame >60 (>=60 mL/min/1.73m^2); Globulin 3.8 g/dL; Glucose 95 mg/dL (74-106); Potassium 3.5 mmol/L (3.5-5.1); Sodium 141 mmol/L (136-145); TSH W/ REFLEX FT4 1.097 uIU/mL (0.358-3.740); Uric Acid 4.7 mg/dL (2.6-6.0)
[2024-07-02 09:11] LABS: Rheumatoid Factor (RF) 10.2 IU/mL (<14.0)
[2024-07-04 12:08] LABS: Antinuclear Antibodies, IFA Positive (.)
== END 2024-07-01 10:17 | disposition home or self-care (01) ==
PROVIDERS: PCP Family Medicine; Visit Provider Family Medicine
DX: Z00.00 Encounter for general adult medical examination without abnormal findings (principal); M25.50 Pain in unspecified joint; D50.9 Iron deficiency anemia, unspecified
CPT/HCPCS: 36415; 80048; 80076; 82728; 83540; 83550; 84443; 84550; 85025; 85652; 86038; 86431

== ENCOUNTER 2024-07-09 13:09 | Emergency (ER) | payer OTHER, SELFPAY ==
[2024-07-09] VITALS (15 sets, daily range): BP systolic 91–146; BP diastolic 57–87; PULSE 62–97; TEMP 36.9; O2SAT 97–100; BMI 30.2
--- OUTSIDE RECORDS SUMMARY | 2024-07-09 13:15 | XMS_ITS | CCD ---
Author Organization [facility] Care Team Providers Care Senior Windows Administrator Name Role Phone DR RENÉ HARO Primary Care Unavailable SONJA, DR GUTIÉRREZ Attending Unavailable SONJA, DR GUTIÉRREZ Consulting Unavailable SONJA, DR GUTIÉRREZ Admitting TIM Vivas Consulting Unavailable Nadia Luciano Unavailable René Haro MD Primary Care Provider PARADISE PÉREZ Attending Unavailable PARADISE PÉREZ Attending Unavailable GRACE TORREZ Attending Unavailable GRACE TORREZ Attending Unavailable PARADISE PÉREZ Attending Unavailable PARADISE PÉREZ Attending Unavailable RENÉ HARO Attending Unavailable Allergies Allergy Classification Reported Allergen(s) Allergy Type Date of Onset Reaction(s) Facility (1 source) Levalbuterol Drug Allergy 01-13-20 [facility] (1 source) Penicillins Drug allergy (disorder) 01-13-20 20 [facility] (1 source) Sulfonamides (Antibiotic) Drug allergy (disorder) 01-13-20 20 [facility] (9 sources) Levalbuterol Drug Allergy 10-28-19 17 [facility] (9 sources) Penicillin G Drug Allergy 11-02-19 made her a [facility] (7 sources) Sulfamethoxazole / Trimethoprim Drug Allergy 07-05-19 [facility] Other (8 sources) Sulfamethoxazole Drug Allergy 11-02-19 [facility] (8 sources) Trimethoprim Drug Allergy 11-02-19 [facility] (6 sources) Spironolactone Drug Allergy 07-19-19 GI intolerance, Dizziness [facility] Work Phone: Medications Current Medications Medication Drug Class(es) Dates Sig (Normalized) Sig (Original) [id number] 200 actuat albuterol 0.09 mg/actuat metered dose [...] Active benzoyl peroxide 0.05 mg/mg topical gel (6 sources) benzoyl peroxide 5 % gel Apply topically Daily Active clindamycin 0.01 mg/mg topical gel (6 sources) Lincosamide Antibacterial Start: 01-14-2024 clindamycin (Clindagel) 1 % gel Indications: Acne vulgaris Apply topically Daily before meals 60 g 01/14/2024 Active dextromethorphan hydrobromide 15 mg / guaiFENesin 400 mg / pseudoephedrine hydrochloride 60 mg oral tablet (1 source) alpha-Adrenergic Agonist, Uncompetitive M-okzafy-F-aspartat e Receptor Antagonist, Sigma-1 Agonist Start: 03-27-2024 take 4 tablets by mouth every twenty-four hours Pseudoephedrine- Dm-Guaifenesin (Capmist Dm) 60-15-400 mg tablet Active 1 TAB PO EVERY 4-6 HOURS March 27, 2024 12:00am do not exceed 4 doses per 24 hrs doxycycline monohydrate 100 mg oral capsule (8 sources) Tetracycline-class Drug Start: 03-27-2024 take 100 mg by mouth once daily Doxycycline Monohydrate Active 100 MG PO Daily March 27, 2024 12:00am Start: 01-14-2024 take 1 capsule by mo [facility] twice daily doxycycline (Monodox) 100 MG capsule Indications: Acne vulgaris Take 1 capsule, by mouth, bid, 30 days 60 capsule 11 01/14/2024 Active Start: 04-24-2023 [facility] Doxycycline Hyclate 100 MG 1 tablet Orally Twice a day for 10 day(s) Apr, Active ferrous gluconate 324 mg oral tablet (8 sources) Start: 11-02-2023 take 324 mg by mouth once daily Ferrous Gluconate Active 324 MG PO Daily November 02, 2023 12:00am FLUoxetine 10 mg oral capsule (9 sources) Serotonin Reuptake Inhibitor Start: 11-02-2023 take 1 capsule by mouth once daily FLUoxetine (PROzac) 10 MG capsule Indications: Anxiety TAKE 1 CAPSULE BY MOUTH DAILY 90 capsule 3 01/14/2024 Active take 1 capsule by mo [facility] every twenty-four hours PROzac 10 MG 1 [...] 12:00am Start: 04-24-2023 take 1 tablet by [facility] every twelve hours predniSONE 20 MG 1 tablet Orally bid for 5 day(s) Apr, Active tretinoin 0.25 mg/ml topical cream (6 sources) Retinoid Start: 01-14-2024 tretinoin (Ret in-A) [...] ABDOMINAL PAIN] Onset: 12-16-2021 Episodic Anxiety disorders (4 sources) Generalized anxiety disorder; Translations: [Generalized anxiety disorder] Onset: 06-29-2024 06-29-2024 Chronic Asthma (1 source) Exacerbation of asthma; Translations: [Unspecified asthma with (acute) exacerbation] Chronic Chronic obstructive pulmonary disease and bronchiectasis (1 source) Bronchitis, not specified as acute or chronic Episodic Deficiency and other anemia (6 sources) Iron deficiency anemia; Translations: [Iron deficiency anemia, unspecified] Onset: 06-29-2024 06-29-2024 Episodic Esophageal disorders (1 source) Gastro-esophageal reflux disease without esophagitis; Translations: [GERD WITHOUT ESOPHAGITIS] Onset: 12-16-2021 Chronic Immunizations and screening for infectious disease (4 sources) Contact with or exposure to other viral diseases; Translations: [Exposure to 2019 novel coronavirus] Onset: 07-04-2024 03-27-2024 Episodic Malaise and fatigue (1 source) Other fatigue; Translations: [OTHER FATIGUE] Onset: 12-16-2021 Episodic Mood disorders (4 sources) Recurrent major depressive episodes, mild ; Translations: [Major depressive disorder, recurrent, mild] Onset: 06-29-2024 06-29-2024 Chronic Nausea and vomiting (3 sources) Nausea with vomiting, unspecified; Translations: [NAUSEA WITH VOMITING UNSPECIFIED] Onset: 12-11-2021 Episodic Other gastrointestinal disorders (1 source) Constipation, unspecified; Translations: [CONSTIPATION UNSPECIFIED] Onset: 12-16-2021 Episodic Other nervous system disorders (6 sources) Disorder of autonomic nervous system; Translations: [Disorder of the autonomic nervous system, unspecified] Onset: 06-29-2024 06-29-2024 Chronic Other non-traumatic joint disorders (6 sources) Joint pain; Translations: [Pain in unspecified joint] Onset: 06-29-2024 06-29-2024 Episodic Other skin disorders (4 sources) Acne vulgaris; Translations: [Acne vulgaris] Onset: [...] Test Name Value Interpretation Reference Range Facility ALL SED RATEon 07-01-2024 TBH SED RATE 18 NINF [facility] No Panel InformationOrdered By: Romelia Kirk on 11-02-2023 Quick Strep (POC) [facility] CBC AUTO DIFFon 12-11-2021 BASO # 0.0 103/ul Normal 0.0-0.1 [facility] Comment on above: Performed By: #### C BC #### [facility] [address] [address] [address] Delphine Small Basophils/100 WBC (Bld) 0.5 % Normal 0.2-2.0 [facility] Comment on above: Performed By: #### C BC #### [facility] [address] [address] [address] Delphine Small EO # 0.2 103/ul Normal 0.0-0.7 [facility] Comment on above: Performed By: #### C BC #### [facility] [address] [address] [address] Delphine Small Eosinophils/100 WBC (Bld) 2.6 % Normal 0.9-7.0 [facility] Comment on above: Performed By: #### C BC #### [facility] [address] [address] [address] Delphine Small Erythrocyte distribution width (RBC) [Ratio] 11.6 % Normal 11.0-15.0 [facility] Comment on above: Performed By: #### C BC #### [facility] [address] [address] [address] Delphine Small Hematocrit (Bld) [Volume fraction] 38.6 % Normal 36.0-48.0 [facility] Comment on above: Performed By: #### C BC #### [facility] [address] [address] [address] Delphine Small Hemoglobin (Bld) [Mass/Vol] 13.1 g/dL Normal 12.0-16.0 [facility] Comment on above: Performed By: #### C BC #### [facility] [address] [place] [address] Dr. Delphine Small IG # 0.01 10e3/ul Normal 0.00-0.03 [facility] Comment on above: Performed By: #### C BC #### [facility] [address] [place] [address] Dr. Delphine Small IG % 0.2 % Normal 0.0-0.5 [facility] Comment on above: Performed By: #### C BC #### [facility] [address] [place] [address] Dr. Delphine Small LYMPH # 2.7 103/ul Normal 1.2-3.8 [facility] Comment on above: Performed By: #### C BC #### [facility] [address] [place] [address] Dr. Delphine Small Lymphocytes/100 WBC (Bld) 44.0 % Normal 20.5-60.0 [facility] Comment on above: Performed By: #### C BC #### [facility] [address] [place] [address] Dr. Delphine Small MANUAL DIFF REQ NO Normal [facility] Comment on above: Performed By: #### C BC #### [facility] [address] [place] [address] Dr. Delphine Small MCH (RBC) [Entitic mass] 30.2 pg Normal 26.7-34.0 [facility] Comment on above: Performed By: #### C BC #### [facility] [address] [place] [address] Dr. Delphine Small MCHC (RBC) [Mass/Vol] 33.9 g/dL Normal 29.9-35.2 [facility] Comment on above: Performed By: #### C BC #### [facility] [address] [place] [address] Dr. Delphine Small MCV (RBC) [Entitic vol] 88.9 fL Normal 81.0-99.0 [facility] Comment on above: Performed By: #### C BC #### [facility] [address] [place] [address] Dr. Delphine Small MONO # 0.4 103/ul Normal 0.3-0.8 [facility] Comment on above: Performed By: #### C BC #### [facility] [address] [place] [address] Dr. Delphine Small Monocytes/100 WBC (Bld) 6.9 % Normal 1.7-12.0 [facility] Comment on above: Performed By: #### C BC #### [facility] [address] [place] [address] Dr. Delphine Small NEUT # 2.9 103/ul Normal 1.4-6.5 [facility] Comment on above: Performed By: #### C BC #### [facility] [address] [place] [address] Dr. Delphine Small Neutrophils/100 WBC (Bld) 45.8 % Normal 43.0-75.0 [facility] Comment on above: Performed By: #### C BC #### [facility] [address] [place] [address] Dr. Delphine Small Platelet mean volume (Bld) [Entitic vol] 9.7 fL Normal 9.5-13.5 [facility] Comment on above: Performed By: #### C BC #### [facility] [address] [place] [address] Dr. Delphine Small PLT 182 103/ul Normal 150-450 [facility] Comment on above: Performed By: #### C BC #### [facility] [address] [place] [address] Dr. Delphine Small RBC 4.34 106/ul Normal 4.20-5.40 [facility] Comment on above: Performed By: #### C BC #### [facility] [address] [place] [address] Dr. Delphine Small WBC 6.2 103/ul Normal 4.0-11.0 [facility] Comment on above: Performed By: #### C BC #### [facility] [address] [place] [address] Dr. Delphine Small Covid-19 PCR (CVDTB)on 11-14 SARS-CoV-2 (COVID-19) RNA RUDY+probe Ql (Unsp spec) Not detected Normal NOT DETECTED [facility] Comment on above: Result Comment: When [...] for this test is supported by the Client Sales And Service Officer of Health and Human Service's declaration that [...] used). Performed By: #### C VDTB #### [facility] [address] [place] [address] Dr. Delphine Small PROF 14(COMP METB)on 022 Albumin [Mass/Vol] 3.8 g/dL Normal 3.4-5.0 [facility] Comment on above: Performed By: #### C MP #### [facility] [address] [place] [address] Dr. Delphine Small Albumin/Globulin [Mass ratio] 1.1 {ratio} Normal [facility] Comment on above: Performed By: #### C MP #### [facility] [address] [place] [address] Dr. Delphine Small ALP [Catalytic activity/Vol] 77 U/L Normal 46-116 [facility] Comment on above: Performed By: #### C MP #### [facility] [address] [place] [address] Dr. Delphine Small ALT [Catalytic activity/Vol] 24 U/L Normal 14-59 [facility] Comment on above: Performed By: #### C MP #### [facility] [address] [address] [address] Delphine Small Anion gap [Moles/Vol] 11.8 mmol/L Normal Th [facility] Comment on above: Performed By: #### C MP #### [facility] [address] [address] [address] Delphine Small AST [Catalytic activity/Vol] 16 U/L Normal 15-37 [facility] Comment on above: Performed By: #### C MP #### [facility] [address] [address] [address] Delphine Small Bilirubin [Mass/Vol] 0.8 mg/dL Normal 0.2-1.0 [facility] Comment on above: Performed By: #### C MP #### [facility] [address] [address] [address] Delphine Small Calcium [Mass/Vol] 8.6 mg/dL Normal 8.5-10.1 [facility] Comment on above: Performed By: #### C MP #### [facility] [address] [address] [address] Delphine Small Chloride [Moles/Vol] 103 mmol/L Normal 98-107 [facility] Comment on above: Performed By: #### C MP #### [facility] [address] [address] [address] Delphine Small CO2 [Moles/Vol] 27.8 mmol/L Normal 21.0-32.0 [facility] Comment on above: Performed By: #### C MP #### [facility] [address] [address] [address] Delphine Small Creatinine [Mass/Vol] 0.70 mg/dL Normal 0.55-1.02 [facility] Comment on above: Performed By: #### C MP #### [facility] [address] [address] [address] Delphine Small EGFR-AF AUSTRALIAN >60 Normal >=60 [facility] Comment on above: Performed By: #### C MP #### [facility] [address] [address] [address] Delphine Small EGFR-NON AF AUSTRALIAN >60 Normal >=60 [facility] Comment on above: Performed By: #### C MP #### [facility] [address] [address] [address] Delphine Small Globulin (S) [Mass/Vol] 3.6 g/dL Normal [facility] Comment on above: Performed By: #### C MP #### [facility] [address] [address] [address] Delphine Small Glucose [Mass/Vol] 94 mg/dL Normal 74-106 [facility] Comment on above: Performed By: #### C MP #### [facility] [address] [place] [address] Dr. Delphine Small Potassium [Moles/Vol] 3.6 mmol/L Normal 3.5-5.1 [facility] Comment on above: Performed By: #### C MP #### [facility] [address] [place] [address] Dr. Delphine Small Protein [Mass/Vol] 7.4 g/dL Normal 6.4-8.2 [facility] Comment on above: Performed By: #### C MP #### [facility] [address] [place] [address] Dr. Delphine Small Sodium [Moles/Vol] 139 mmol/L Normal 136-145 [facility] Comment on above: Performed By: #### C MP #### [facility] [address] [place] [address] Dr. Delphine Small Urea nitrogen [Mass/Vol] 10.0 mg/dL Normal 6.4-19.3 [facility] Comment on above: Performed By: #### C MP #### [facility] [address] [address] [address] Delphine Small Urea nitrogen/Creatinine [Mass ratio] 14.3 mg/mg Normal [facility] Comment on above: Performed By: #### C MP #### [facility] [address] [place] [address] Dr. Delphine Small XR ABD FLAT UP_PA [...] by: TIM BARRETT Date: 2021-12-11 21:29 Normal [facility] Vital Signs Date Time Vital Sign Value Performing Clinician Facility 06-29-2024 13:15-0500 Body mass index (BMI) [Ratio] 29.74 kg/m2 René Haro MD Work Phone: [facility] 06-29-2024 13:15-0500 Body temperature 97.3 [degF] René Haro MD Work Phone: [facility] 06-29-2024 13:15-0500 Body weight 72.58 kg René Haro MD Work Phone: [facility] 06-29-2024 13:15-0500 Diastolic blood pressure 64 mm[Hg] René Haro MD Work Phone: [facility] 06-29-2024 13:15-0500 Heart rate 83 /min René Haro MD Work Phone: [facility] 06-29-2024 13:15-0500 SaO2% (BldA) [Mass fraction] 100 % René Haro MD Work Phone: [facility] 06-29-2024 13:15-0500 Systolic blood pressure 102 mm[Hg] René Haro MD Work Phone: [facility] 03-27-2024 12:26-0400 Body height 157.48 cm [facility] 03-27-2024 12:26-0400 Body mass index (BMI) [Ratio] 28.3 kg/m2 [facility] 03-27-2024 12:26-0400 Body temperature 98.2 [degF] [facility] 03-27-2024 12:26-0400 Body weight 70.3 kg [facility] 03-27-2024 12:26-0400 Diastolic blood pressure 71 mm[Hg] [facility] 03-27-2024 12:26-0400 Heart rate 80 /min [facility] 03-27-2024 12:26-0400 Respiratory rate 18 /min [facility] 03-27-2024 12:26-0400 SaO2% (BldA) [Mass fraction] 99 % [facility] 03-27-2024 12:26-0400 Systolic blood pressure 101 mm[Hg] [facility] 11-02-2023 18:09-0400 Body height 157.48 cm [facility] 11-02-2023 18:09-0400 Body mass index (BMI) [Ratio] 28.2 kg/m2 [facility] 11-02-2023 18:09-0400 Body temperature 99 [degF] [facility] 11-02-2023 18:09-0400 Body weight 69.96 kg [facility] 11-02-2023 18:09-0400 Heart rate 115 /min [facility] 11-02-2023 18:09-0400 Respiratory rate 18 /min [facility] 11-02-2023 18:09-0400 SaO2% (BldA) [Mass fraction] 98 % [facility] 04-24-2023 12:35-0500 Body height 157.48 cm Nadia Luciano Other [facility] Other 04-24-2023 12:35-0500 Body mass index (BMI) [Ratio] 26.48 kg/m2 Nadia Luciano Other [facility] Other 04-24-2023 12:35-0500 Body temperature 98.1 [degF] Nadia Luciano Other [facility] Other 04-24-2023 12:35-0500 Body weight 65.68 kg Nadia Luciano Other [facility] Other 04-24-2023 12:35-0500 Respiratory rate 18 /min Nadia Luciano Other [facility] Other 04-24-2023 12:35-0500 SaO2% (BldA) [Mass fraction] 97 % Nadia Luciano Other [facility] Other Encounters Encounter Date Encounter Type Care Provider Facility Start: 07-04-2024 End: 07-04-2024 Orders Only René Haro MD Work Phone: [facility] Comment on above: Positive NGOZI (antinu clear antibody) (Primary Dx) Start: 07-01-2024 End: 07-01-2024 [facility] Result Encounter René Haro MD Work Phone: [facility] Unsolicited Start: 07-01-2024 End: 07-01-2024 [facility] Result Encounter René Haro MD Work Phone: [facility] Unsolicited Start: 06-29-2024 End: 06-29-2024 Bamboo flowsheet René Haro MD Work Phone: [facility] Start: 06-29-2024 End: 06-29-2024 Bamboo flowsheet René Haro MD Work Phone: [facility] Start: 06-29-2024 End: 06-29-2024 Office outpatient visit 25 minutes René Haro MD Work Phone: [facility] Comment on above: Autonomic dysfunctio n (Primary Dx); Arthralgia, unspecified joint; Iron deficiency anemia, unspecified iron deficiency anemia type; Annual physical exam Start: 06-29-2024 End: 06-29-2024 Patient encounter procedure René Haro MD Work Phone: [facility] Start: 06-29-2024 End: 06-29-2024 ambulatory RENÉ HARO Not Available Start: 05-15-2024 End: 05-15-2024 Bamboo flowsheet Paradise L Elisa PA Work Phone: [facility] Start: 05-15-2024 End: 05-15-2024 Bamboo flowsheet Paradise L Elisa PA Work Phone: [facility] Start: 05-15-2024 End: 05-15-2024 ambulatory PARADISE L ELISA Not Available Start: 03-27-2024 End: 03-27-2024 ambulatory [facility] Work Phone: Start: 03-27-2024 End: 03-27-2024 Patient encounter procedure [facility] Work Phone: Start: 01-14-2024 End: 01-14-2024 ambulatory PARADISE L ELISA Not Available Start: 12-09-2023 End: 12-09-2023 ambulatory GRACE A RUSHER Not Available Start: 11-17-2023 End: 11-17-2023 ambulatory GRACE A RUSHER Not Available Start: 11-02-2023 End: 11-02-2023 ambulatory [facility] Work Phone: Start: 11-02-2023 End: 11-02-2023 Patient encounter procedure [facility] Work Phone: Start: 10-04-2023 End: 10-04-2023 ambulatory PARADISE L ELISA Not Available Start: 07-05-2023 End: 07-05-2023 ambulatory PARADISE PÉREZ Not Available Start: 04-24-2023 End: 04-24-2023 ambulatory Nadia Luciano Other [employer] Other Start: 04-24-2023 Office outpatient vi sit 15 minutes Nadia Ankita [facility] Start: 12-11-2021 End: 12-12-[address] RENÉ HARO Facility:[facility] Procedures Date Procedure Procedure Detail Performing Clinician Start: 07-01-2024 ALL SED RATE René bay MD Work Phone: Start: 11-02-2023 Quick Strep (POC) Plan of Treatment Date Care Activity Detail Author Start: 12-04-2024 End: 12-04-2024 Patient encounter procedure 12/04/2024 10:30 AM EDT Office Visit [facility] [address] [place] [address] Paradise Pérez, ESTHER [address] [place] [address] [facility] Start: 08-02-2024 End: 08-02-2024 Patient encounter procedure 08/02/2024 7:30 AM EST Office Visit [facility] [address] [place] [id number] René Haro MD [address] [place] [id number] [facility] Start: 06-29-2024 End: 06-29-2025 Basic metabolic 1998 panel - Serum or Plasma Basic metabolic panel Lab Routine Arthralgia, unspecified joint Annual physical exam Expected: 06/29/2024 (Approximate), Expires: 06/29/2025 [facility] Comment on above: Expected: 06/29/2024 (Approximate), Expires: 06/29/2025 Start: 06-29-2024 End: 06-29-2025 CBC W Auto Differential panel - Blood CBC and differential Lab Routine Annual physical exam Expected: 06/29/2024 (Approximate), Expires: 06/29/2025 [facility] Comment on above: Expected: 06/29/2024 (Approximate), Expires: 06/29/2025 Start: 06-29-2024 End: 06-29-2025 Erythrocyte sedimentation rate Sedimentation rate, automated Lab Routine Arthralgia, unspecified joint Expected: 06/29/2024 (Approximate), Expires: 06/29/2025 [facility] Work Phone: Comment on above: Expected: 06/29/2024 (Approximate), Expires: 06/29/2025 Start: 06-29-2024 End: 06-29-2025 Ferritin [Mass/volume] in Serum or Plasma Ferritin Lab Routine Iron deficiency anemia, unspecified iron deficiency anemia type Expected: 06/29/2024 (Approximate), Expires: 06/29/2025 [facility] Comment on above: Expected: 06/29/2024 (Approximate), Expires: 06/29/2025 Start: 06-29-2024 End: 06-29-2025 Hepatic function 2000 panel - Serum or Plasma Hepatic function panel Lab Routine Annual physical exam Expected: 06/29/2024 (Approximate), Expires: 06/29/2025 [facility] Comment on above: Expected: 06/29/2024 (Approximate), Expires: 06/29/2025 Start: 06-29-2024 End: 06-29-2025 Iron and Iron binding capacity panel - Serum or Plasma Iron and TIBC Lab Routine Iron deficiency anemia, unspecified iron deficiency anemia type Expected: 06/29/2024 (Approximate), Expires: 06/29/2025 [facility] Comment on above: Expected: 06/29/2024 (Approximate), Expires: 06/29/2025 Start: 06-29-2024 End: 06-29-2025 Nuclear Ab [Titer] in Serum by Immunofluorescence NGOZI Lab Routine Arthralgia, unspecified joint Expected: 06/29/2024 (Approximate), Expires: 06/29/2025 [facility] Comment on above: Expected: 06/29/2024 (Approximate), Expires: 06/29/2025 Start: 06-29-2024 End: 06-29-2025 Rheumatoid factor [Units/volume] in Serum or Plasma Rheumatoid factor Lab Routine Arthralgia, unspecified joint Expected: 06/29/2024 (Approximate), Expires: 06/29/2025 [facility] Comment on above: Expected: 06/29/2024 (Approximate), Expires: 06/29/2025 Start: 06-29-2024 End: 06-29-2025 TSH W/REFLEX TO FT4 TSH W/REFLEX TO FT4 Lab Routine Annual physical exam Expected: 06/29/2024 (Approximate), Expires: 06/29/2025 [facility] Comment on above: Expected: 06/29/2024 (Approximate), Expires: 06/29/2025 Start: 06-29-2024 End: 06-29-2025 Urate [Mass/volume] in Serum or Plasma Uric acid Lab Routine Arthralgia, unspecified joint Expected: 06/29/2024 (Approximate), Expires: 06/29/2025 [facility] Comment on above: Expected: 06/29/2024 (Approximate), Expires: 06/29/2025 Start: 06-29-2024 End: 06-29-2024 Patient encounter procedure 06/29/2024 1:15 PM EST Office Visit [facility] [address] [place] [address] René Haro MD [address] [place] [address] Arrived [facility] Comment on above: Arrived Start: 02-13-2024 Influenza vaccination Influenza Vacc ine (#1) [facility] Immunizations Immunization Date Immunization Notes Care Provider Fa cility 11-28-2019 meningococcal oligosaccharide (groups A, C, Y and W-135) diphtheria toxoid conjugate vaccine (MCV4O) Paradise SANTANA Work Phone: [facility] 06-27-2015 hepatitis A vaccine, pediatric/adolescent dosage, 2 dose schedule Paradise SANTANA Work Phone: [facility] 12-25-2014 hepatitis A vaccine, pediatric/adolescent dosage, 2 dose schedule Paradise SANTANA Work Phone: [facility] 12-25-2014 meningococcal oligosaccharide (groups A, C, Y and W-135) diphtheria toxoid conjugate vaccine (MCV4O) Paradise SANTANA Work Phone: [facility] 12-25-2014 tetanus toxoid, redu law diphtheria toxoid, and acellular pertussis vaccine, adsorbed Paradise Pérez PA Work Phone: [facility] 12-25-2014 varicella virus vaccine Jessa roger Elisa PA Work Phone: [facility] 04-21-2013 influenza virus vacc ine, live, attenuated, for intranasal use Paradise SANTANA Work Phone: [facility] 04-21-2013 influenza virus vacc ine, unspecified formulation Paradise SANTANA Work Phone: [facility] 11-15-2007 diphtheria, tetanus toxoids and acellular pertussis vaccine Paradise SANTANA Work Phone: [facility] 11-15-2007 poliovirus vaccine, inactivated Paradise SANTANA Work Phone: [facility] 10-11-2004 diphtheria, tetanus toxoids and acellular pertussis vaccine, unspecified formulation Paradise SANTANA Work Phone: [facility] 10-11-2004 measles, mumps and r ubella virus vaccine Paradise SANTANA Work Phone: [facility] 07-11-2004 haemophilus influenz ae type b vaccine, conjugate unspecified formulation Paradise Pérez PA Work Phone: [facility] 07-11-2004 measles, mumps and r ubella virus vaccine Paradise Pérez PA Work Phone: [facility] 04-04-2004 varicella virus vaccine Jessa roger Elisa PA Work Phone: [facility] 2003 diphtheria, tetanus toxoids and acellular pertussis vaccine, unspecified formulation Paradise SANTANA Work Phone: [facility] 2003 haemophilus influenz ae type b vaccine, conjugate unspecified formulation Paradise Elisa PA Work Phone: [facility] 2003 hepatitis B vaccine, pediatric or pediatric/adolescent dosage Paradise Elisa PA Work Phone: [facility] 2003 poliovirus vaccine, unspecified formulation Paradise Elisa PA Work Phone: [facility] 2003 diphtheria, tetanus toxoids and acellular pertussis vaccine, unspecified formulation Paradise Elisa PA Work Phone: [facility] 2003 haemophilus influenz ae type b vaccine, conjugate unspecified formulation Paradise Elisa PA Work Phone: [facility] 2003 pneumococcal conjuga te vaccine, 7 valent Paradise Elisa PA Work Phone: [facility] 2003 poliovirus vaccine, unspecified formulation Paradise Elisa PA Work Phone: [facility] 2003 diphtheria, tetanus toxoids and acellular pertussis vaccine, unspecified formulation Paradise Elisa PA Work Phone: [facility] 2003 haemophilus influenz ae type b vaccine, conjugate unspecified formulation Paradise Elisa PA Work Phone: [facility] 2003 hepatitis B vaccine, pediatric or pediatric/adolescent dosage Paradise Elisa PA Work Phone: [facility] 2003 pneumococcal conjuga te vaccine, 7 valent Paradise Elisa PA Work Phone: [facility] 2003 poliovirus vaccine, unspecified formulation Paradise Elisa PA Work Phone: [facility] 2003 hepatitis B vaccine, pediatric or pediatric/adolescent dosage Paradise Elisa PA Work Phone: [facility] Payers Date Payer Category Payer Private Health Insurance [place] [employer] [id number] 2022 Unknown [id number] 2003 Unknown [id number] [id number] 2003 Unknown [id number] 2.9 2003 Unknown [id number] 2.9 2003 Unknown [id number] 2003 Unknown [id number] 2.9 2003 Unknown [id number] 2.9 2003 Unknown [id number] [id number] 1978 Unknown [id number] 1959 Unknown [id number] Medicaid [place] [employer] [id number] Social History Date Type Detail Facility Unknown if ever smoked [employer] Other Start: 01-14-2024 End: 06-29-2024 Sex Assigned At [facility] Other Start: 07-05-2023 End: 11-02-2023 Tobacco smoking status NHIS Never smoked tobacco (finding) [facility] Start: 2005 Sex Assigned At Female [facility] Start: 07-05-2023 Tobacco use and exposure Smokeless tobacco non-user [facility] Start: 01-14-2024 End: 06-29-2024 Alcoholic beverage intake Lifetime non-drinker (finding) [facility] Start: 01-14-2024 End: 06-29-2024 History of Social function [facility] Start: 2003 Sex assigned at Not on file [facility] History of Present illness Narrative 06-29-2024 [...] W/REFLEX TO FT4 documented in this encounter [facility] Evaluation note 04-24-2023 Note Date & [...] no improvement in 2 to 3 days [employer] Other Chief complaint+Reason for visit Narrative Note Date & Type Note Facility Chief complaint+Reason for v isit Narrative Reason for Visit Contact with and (suspected) exposure to covid-19 [facility] Work Phone: Evaluation note Note Date & Type Note Facility Evaluation note Diagnosis Onset Date Viral URI with cough acute [facility] Work Phone: Evaluation note Note Date & Type Note Facility Evaluation note Diagnosis Onset Date Contact with and (suspected) exposure to covid-19 noneactive [facility] Work Phone: Evaluation note Note Date & Type Note Facility Evaluation note Diagnosis Autonomic dysfunction- Primary Arthralgia, unspecified joint Iron deficiency anemia, unspecified iron deficiency anemia type Annual physical exam Routine general medical examination at a health care facility documented in this encounter [facility] Evaluation note Note Date & Type Note Facility Evaluation note Diagnosis Autonomic dysfunction- Primary Arthralgia, unspecified joint Iron deficiency anemia, unspecified iron deficiency anemia type Annual physical exam Routine general medical examination at a health care facility Positive NGOIZ (antinuclear antibody)- Primary Other and unspecified nonspecific immunological findings documented in this encounter [facility] History general Narrative - Reported Note Date & Type Note Facility History general Narrative - Reported Type Medical History Gastroesophageal reflux disease Medical History Asthma Medical History iron deficiency Surgical History wisdom teeth Hospitalization History rotovirus, dehydration 2 003 [employer] Other Summary Purpose Family History No Family [...] content) DATE CREATED AUTHOR 01/11/2022 [facility]on[facility] DATE CREATED AUTHOR AUTHOR'S ORGANIZ ATION 07/02/2024 [facility] EPIC REASON FOR VISIT (unrecogniz ed section and content) Reason Comments Dizziness Losing balance Extremity Weakness In legs and hands Care Teams (unrecognized sec tion and content) Team Status: Active Member Role Status Dates René Haro MD Primary Care Provider Active Team Status: Inactive Member Role Status Dates Romelia Kirk APRN Attending Provider Active Start: November 02, 2023 [...] March 27, 2024 End: March 27, 2024 Senior Windows Administrator Relationship Specialty Start Date End Date René Haro MD [address] [place] [phone] PCP - General Family Medicine 04/14/23 Senior Windows Administrator Relationship Specialty Start Date End Date René Haro MD [address] [place] [phone] PCP - General Family Medicine 04/14/23 Senior Windows Administrator Relationship Specialty Start Date End Date René Haro MD [address] [place] [phone] PCP - General Family Medicine 04/14/23 Senior Windows Administrator Relationship Specialty Start Date End Date René Haro MD [address] [place] [phone] PCP - General Family Medicine 04/14/23 Senior Windows Administrator Relationship Specialty Start Date End Date René Haro MD [address] [place] [phone] PCP - General Family Medicine 04/14/23 Goals [...] BE BASED ON THE PRIMARY CLINICAL RECORDS. [facility]. provides no warranty or guarantee of the accuracy or completeness of information in this document.
--- NOTE | 2024-07-09 14:05 | ECG_ITS ---
The [facility] Test Date: 2024-07-09 Pat Name: LOUIS MONROE Department: Room: - Gender: Female Pulper: : 2005 Requested By: DAYAMI HARO Order Number: [id number] Reading MD: ISRA GUZMAN Measurements Intervals Percy Rate: 87 P: 65 KS: 142 QRS: 85 QRSD: 80 T: 43 QT: 348 QTc: 393 Interpretive Statements 1100 Sinus rhythm 1102 Sinus arrhythmia 9110 normal ECG Compared to ECG 01/13/2020 18:13:28 No significant changes Electronically Signed On 07-10-2024 9:24:51 EST by ISRA GUZMAN
--- NOTE | 2024-07-09 14:05 | XR_ITS ---
The [address] [address] Patient Name: LOUIS MONROE MRN: [id number] date: 2005 Sex: F Assigned Patient Location: ER Current Patient Location: ER Accession/Order Number: [id number] Exam Date: 07/09/2024 14:20 Report Date: 07/09/2024 15:58 At the request of: CARL DONIS Procedure: XR chest 1V EXAM: XR chest 1V 07/09/2024 COMPARISON: PA and lateral chest 04/29/2023 FINDINGS: The cardiomediastinal contours are within normal limits. No dense consolidation, effusion, edema, failure or pneumothorax noted. No acute osseous abnormality is identified. HISTORY: chest pain XR/XR chest 1V IMPRESSION: No acute cardiopulmonary process suspected. Electronically authenticated by: ALPHONSO ZAIDI Date: 07/09/2024 15:58
[2024-07-09 14:13] LABS: Basophils Absolute Auto 0.1 10^3/uL (0.0-0.1); Basophils Percent Auto 0.7 % (0.2-2.0); Eosinophils Absolute Auto 0.3 10^3/uL (0.0-0.7); Hematocrit 38.8 % (36.0-48.0); Hemoglobin 13.1 g/dL (12.0-16.0); Immature Granulocytes Abs Auto 0.02 10^3/uL (0.00-0.03); Immature Granulocytes Pct Auto 0.3 % (0.0-0.5); Lymphocytes Absolute Auto 2.4 10^3/uL (1.2-3.8); Lymphocytes Percent Auto 32.4 % (20.5-60.0); Mean Corpuscular HGB Conc 33.8 g/dL (29.9-35.2); Mean Corpuscular Hemoglobin 29.5 pg (26.7-34.0); Mean Corpuscular Volume 87.4 fL (81.0-99.0); Monocytes Absolute Auto 0.5 10^3/uL (0.3-0.8); Monocytes Percent Auto 6.2 % (1.7-12.0); Neutrophils Absolute Auto 4.2 10^3/uL (1.4-6.5); Neutrophils Percent Auto 56.4 % (43.0-75.0); Platelet Count 200 10^3/uL (150-450); Red Blood Count 4.44 10^6/uL (4.20-5.40); Red Cell Distribution Width 11.8 % (11.0-15.0); White Blood Count 7.4 10^3/uL (4.0-11.0)
[2024-07-09 14:25] LABS: HCG Qualitative NEGATIVE (NEGATIVE); Internal Control Within Normal Limits
[2024-07-09 14:31] LABS: Alanine Aminotransferase 24 U/L (14-59); Albumin Level 3.6 g/dL (3.4-5.0); Alkaline Phosphatase 64 U/L (46-116); Anion Gap 11.2; Aspartate Amino Transferase 15 U/L (15-37); BUN Creatinine Ratio 17.7; Bilirubin Total 1.5 mg/dL (0.2-1.0); Calcium 8.8 mg/dL (8.5-10.1); Carbon Dioxide 28.1 mmol/L (21.0-32.0); Chloride 102 mmol/L (98-107); Estimated GFR (African America >60 (>=60 mL/min/1.73m^2); Estimated GFR (Non-African Ame >60 (>=60 mL/min/1.73m^2); Globulin 3.6 g/dL; Glucose 102 mg/dL (74-106); Potassium 3.3 mmol/L (3.5-5.1); Sodium 138 mmol/L (136-145); Total Protein 7.2 g/dL (6.4-8.2); Troponin I High Sensitivity 4.4 pg/mL (4.0-51.3)
[2024-07-09 14:33] LABS: INR 1.12; Prothrombin Time 11.7 sec (9.0-11.6)
[2024-07-09 14:38] LABS: D Dimer 0.77 mg/L FEU (<=0.59)
--- NOTE | 2024-07-09 14:43 | CT_ITS ---
The [address] [address] Patient Name: LOUIS MONROE MRN: [id number] date: 2005 Sex: F Assigned Patient Location: ER Current Patient Location: ER Accession/Order Number: [id number] Exam Date: 07/09/2024 15:12 Report Date: 07/09/2024 16:31 At the request of: CARL DONIS Procedure: CT angio chest EXAM: CT angio chest HISTORY: chest pain and elevated dimer clinical suspicion of pulmonary embolus. COMPARISON: Chest x-ray 07/09/2024 and earlier. TECHNIQUE: CTA chest PE protocol. Axial scans supplemented with 3-D and MIP reconstructed images. Individualized radiation dose reduction used for this exam. Contrast: 100 mL Omnipaque 350 right arm vein. FINDINGS: Pulmonary arteries: Normal pulmonary artery enhancement without thrombus or an embolus. Lungs/pleura: Lungs clear without infiltrate or edema. No pleural effusion or pneumothorax. Cardiac/vascular: Normal heart size. No pericardial effusion. Normal aortic enhancement. There is significant collateral venous flow right chest with poorly defined subclavian vein at the level the first rib and medial clavicle. Correlate for extrinsic compression, thoracic outlet syndrome. Normal opacification of the right innominate vein and SVC No lower neck or axillary mass or adenopathy. No acute abnormality upper abdomen CT/CT angio chest IMPRESSION: 1. Negative for pulmonary embolus. 2. Poorly defined right subclavian vein at the first rib /clavicle question Correlate clinically. 3. Clear lungs, no acute process Electronically authenticated by: ROBERTA FOSTER Date: 07/09/2024 16:31
[2024-07-09] MEDS: 0.9 % SODIUM CHLORIDE 1,000 ML 1000 ML IV (15:04)
[2024-07-09] MEDS: KETOROLAC TROMETHAMINE 30 MG/ML VIAL 15 MG IVP (15:05)
[2024-07-09] MEDS: FAMOTIDINE/PF 20 MG/2 ML VIAL IV (15:06)
--- NOTE | 2024-07-09 17:02 | ED.CHESTPAI1 ---
HPI - Chest Pain General Chief Complaint: Chest Pain Stated Complaint: CHEST PAIN, SHORTNESS OF BREATH, BODYACHES, WEAKNE Time Seen by Provider: 07/09/24 14:04 Source: patient Mode of arrival: walk-in History of Present Illness HPI narrative: The patient is coming to the ER with a chest pain that been going on at least 2 days and a half ago, currently the pain is not related to movement and is not related to taking deep breath , patient mentioned that the pain is more radiated to her left arm sometimes , he mentioned that the pain comes for few seconds and disappear by itself The patient did not use anything [id number] for the pain and she mentioned that she has been getting a workup as outpatient for systemic inflammatory diseases Patient mentioned that her NGOZI was positive as well Patient pain in the left side of the chest mostly just below the left breast radiating to the left arm associated sometimes with numbness and tingling Related Data Home Medications ?Medication ?Instructions ?Recorded ?Confirmed doxycycline monohydrate 100 mg 100 mg PO Q12H 07/09/24 07/09/24 capsule ferrous gluconate 225 mg (27 mg 225 mg PO DAILY 07/09/24 07/09/24 iron) tablet fluoxetine 10 mg capsule 10 mg PO DAILY 07/09/24 07/09/24 Allergies Allergy/AdvReac Type Severity Reaction Status Date / Time sulfamethoxazole (From Allergy Rash Verified 07/09/24 13:54 Bactrim) trimethoprim (From Bactrim) Allergy Rash Verified 07/09/24 13:54 Review of Systems ROS Status of ROS 10 or more systems reviewed and unremarkable except as noted in history and below PFSH PFSH Social History Little interest or pleasure in doing things: not at all Feeling down, depressed, or hopeless: not at all Exam Narrative Exam Narrative: Nurses notes and vital signs reviewed and patient is not hypoxic. General: Well-appearing and in no apparent distress. Skin: Warm, dry, no pallor noted. No rash. Head: Normocephalic, atraumatic. Neck: Supple, non-tender. Eye: Pupils are equal, round and EOMI. No scleral icterus. Ears, Nose, Mouth, and Throat: TM are clear, no nasal mucosal hypertrophy. Oral mucosa is moist, no posterior oropharynx erythema, uvula is mid-line Cardiovascular: Regular Rate and Rhythm without murmur, gallop or rub. Respiratory: No accessory muscle use or respiratory distress. Lungs are clear to auscultation, no wheezing, rales or rhonchi Chest Wall: no tenderness Back: No midline thoracic or lumbar vertebral tenderness. No CVA tenderness Musculoskeletal: normal ROM, no calf or popliteal tenderness, no lower extremity edema/swelling GI: Abdomen is soft, non-distended. Normal bowel sounds. No masses appreciated. No tenderness to palpation. No rebound, guarding, or rigidity noted. Neurological: A&O x4. No cranial nerve dysfunction observed. No truncal ataxia. Moves all extremities. Sensation intact. Psychiatric: Cooperative and interactive. Normal mood and affect. Constitutional Vital Signs, click to edit/add: Last Vital Signs Temp 98.4 F 07/09/24 13:34 Pulse 67 07/09/24 16:30 Resp 14 07/09/24 16:30 BP 91/57 07/09/24 16:00 Pulse Ox 97 07/09/24 16:30 O2 Del Method Room Air 07/09/24 13:34 Course Vital Signs Vital signs: Vital Signs Temperature 98.4 F 07/09/24 13:34 Pulse Rate 84 07/09/24 13:34 Respiratory Rate 16 07/09/24 13:34 Blood Pressure 125/77 07/09/24 13:34 Pulse Oximetry 100 07/09/24 13:34 Oxygen Delivery Method Room Air 07/09/24 13:34 Temperature 98.4 F 07/09/24 13:34 Pulse Rate 67 07/09/24 16:30 Respiratory Rate 14 07/09/24 16:30 Blood Pressure 91/57 07/09/24 16:00 Pulse Oximetry 97 07/09/24 16:30 Oxygen Delivery Method Room Air 07/09/24 13:34 MDM - Chest Pain MDM Narrative Medical decision making narrative: The patient EKG showing sinus rhythm with a heart rate of [address] elevation or depression of the there is some early repolarization The patient CBC and chemistry showed no acute pathology and the troponin was negative and the D-dimer was elevated hCG was negative CT angio of the chest showed no PE , and the interpretation of the CAT scan the radiologist mentioned some right-sided possible thoracic outlet syndrome although this is not the case right now The patient was treated in the ER with Toradol her pain is not consistent and not present at the moment I did explain to her that we ruled out the big diagnoses including PE and coronary artery disease although less likely in this age The patient is to follow up with primary care physician in next 2-3 days or to return to the emergency department should any of the signs or symptoms worsen or new symptoms develop. The patient agrees with the following Diagnosis and Treatment plan and the patient will be discharged home. Lab Data Labs: Lab Results 07/09/24 Range/Units 14:02 WBC 7.4 (4.0-11.0) 10^3/uL RBC 4.44 (4.20-5.40) 10^6/uL Hgb 13.1 (12.0-16.0) g/dL Hct 38.8 (36.0-48.0) % MCV 87.4 (81.0-99.0) fL MCH 29.5 (26.7-34.0) pg MCHC 33.8 (29.9-35.2) g/dL RDW 11.8 (11.0-15.0) % Plt Count 200 (150-450) 10^3/uL MPV 9.0 L (9.5-13.5) fL Neut % (Auto) 56.4 (43.0-75.0) % Lymph % (Auto) 32.4 (20.5-60.0) % [place] % (Auto) 6.2 (1.7-12.0) % Eos % (Auto) 4.0 (0.9-7.0) % Baso % (Auto) 0.7 (0.2-2.0) % Neut # (Auto) 4.2 (1.4-6.5) 10^3/uL Lymph # (Auto) 2.4 (1.2-3.8) 10^3/uL [place] # (Auto) 0.5 (0.3-0.8) 10^3/uL Eos # (Auto) 0.3 (0.0-0.7) 10^3/uL Baso # (Auto) 0.1 (0.0-0.1) 10^3/uL Abs Immat Gran (auto) 0.02 (0.00-0.03) 10^3/uL Imm/Tot Granulo (auto) 0.3 (0.0-0.5) % PT 11.7 H (9.0-11.6) sec INR 1.12 D-Dimer 0.77 H* (<=0.59) mg/L FEU Sodium 138 (136-145) mmol/L Potassium 3.3 L (3.5-5.1) mmol/L Chloride 102 (98-107) mmol/L Carbon Dioxide 28.1 (21.0-32.0) mmol/L Anion Gap 11.2 BUN 14.0 (7.0-18.0) mg/dL Creatinine 0.79 (0.55-1.02) mg/dL Est GFR ( Amer) >60 (>=60 mL/min/1.73m^2) Est GFR (Non-Af Amer) >60 (>=60 mL/min/1.73m^2) BUN/Creatinine Ratio 17.7 Glucose 102 (74-106) mg/dL Calcium 8.8 (8.5-10.1) mg/dL Total Bilirubin 1.5 H (0.2-1.0) mg/dL AST 15 (15-37) U/L ALT 24 (14-59) U/L Alkaline Phosphatase 64 (46-116) U/L Troponin I High Sens 4.4 (4.0-51.3) pg/mL Total Protein 7.2 (6.4-8.2) g/dL Albumin 3.6 (3.4-5.0) g/dL Globulin 3.6 g/dL Albumin/Globulin Ratio 1.0 Serum HCG, Qual Negative (NEGATIVE) Discharge Plan Discharge Chief Complaint: Chest Pain Clinical Impression: Chest pain Patient Disposition: Home, Self-Care Time of Disposition Decision: 16:47 Condition: Good Prescriptions / Home Meds: No Action doxycycline monohydrate 100 mg capsule 100 mg PO Q12H fluoxetine 10 mg capsule 10 mg PO DAILY ferrous gluconate 225 mg (27 mg iron) tablet 225 mg PO DAILY Print Language: Mozambican Instructions: Chest Pain (DC) Referrals: René Amos MD [Primary Care Provider] - 1 week
== END 2024-07-09 17:03 | disposition home or self-care (01) ==
PROVIDERS: Emergency Provider Emergency Medicine; PCP Family Medicine
DX: R07.9 Chest pain, unspecified (principal); R79.89 Other specified abnormal findings of blood chemistry
CPT/HCPCS: 36415; 71045; 71275; 80053; 80307; 84484; 84703; 85025; 85378; 85610; 93005; 96374; 96375; 99285; J1885; J3490; Q9967

== ENCOUNTER 2024-08-10 08:19 | Outpatient (OUT) | payer OTHER, SELFPAY ==
--- NOTE | 2024-08-10 08:24 | MR_ITS ---
The [place] [id number] Patient Name: LOUIS MONROE MRN: [id number] date: 2005 Sex: F Assigned Patient Location: MRI Current Patient Location: MRI Accession/Order Number: [id number] Exam Date: 08/10/2024 11:05 Report Date: 08/10/2024 11:13 At the request of: DAYAMI HARO MD Procedure: MR head/brain wo/w con MRI BRAIN WITHOUT AND WITH INTRAVENOUS CONTRAST CLINICAL DATA: Forgetfulness, visual disturbance weakness, fatigue and dizziness COMPARISON: None Multiecho, multiplanar imaging of the brain was performed before and after intravenous administration of 14 mL of Dotarem. The ventricles are normal in size and position. There are no areas of abnormal signal intensity or enhancement within the supra or infratentorial brain. There is no restricted diffusion to suggest a recent ischemic event. No extra-axial collections or mass effect are seen. No midline abnormalities are noted. The imaged paranasal sinuses and mastoid air cells are clear are clear. The orbital structures appear symmetric. MR/MR head/brain wo/w con IMPRESSION: NO ACUTE INTRACRANIAL FINDINGS. Impression dictated by: Sahra Lange M.D.08/10/2024 11:13 AM Dictation [facility] Electron[facility] authenticated by: [id number] Y Date: 08/10/2024 11:13
--- OUTSIDE RECORDS SUMMARY | 2024-08-10 08:32 | XMS_ITS | CCD ---
Author Organization [facility] Care Team Providers Care Authorization Coordinator Name Role Phone DR RENÉ HARO Primary Care Unavailable SONJA, DR GUTIÉRREZ Attending Unavailable SONJA, DR GUTIÉRREZ Consulting Unavailable SONJA, DR GUTIÉRREZ Admitting Unavailable TIM BARRETT Consulting Unavailable Nadia Luciano Unavailable René Haro MD Primary Care Provider RENÉ HARO Attending Unavailable PARADISE PÉREZ Attending Unavailable GRACE TORREZ Attending Unavailable SHAN, GRACE Darnell Attending Unavailable PARADISE PÉREZ Attending Unavailable PARADISE PÉREZ Attending Unavailable RENÉ HARO Attending Unavailable René Haro MD Primary Care Provider Kelsey Sandoval MD Attending Provider Kelsey Sandoval Attending Unavailable Kelsey Sandoval Admitting Unavailable René Haro Primary Care Unavailable Allergies Allergy Classification Reported Allergen(s) Allergy Type Date of Onset Reaction(s) Facility (1 source) Levalbuterol Drug Allergy 01-13-20 [facility] (1 source) Penicillins Drug allergy (disorder) 01-13-20 [facility] (1 source) Sulfonamides (Antibiotic) Drug allergy (disorder) 01-13-20 [facility] (13 sources) Levalbuterol Drug Allergy 10-28-[address] [facility] (13 sources) Penicillin G Drug Allergy 11-02-19 made her a [facility] (10 sources) Sulfamethoxazole / Trimethoprim Drug Allergy 07-05-19 aide [employer] Other (13 sources) Sulfamethoxazole; Translations: [sulfamethoxazole] Drug Allergy 11-02-19 [facility] (13 sources) Trimethoprim; Translations: [trimethoprim] Drug Allergy 11-02-19 24 Rash [facility] (9 sources) Spironolactone Drug Allergy 07-19-19 GI intolerance, Dizziness [facility] Work Phone: (1 source) Levalbuterol Drug Allergy 03-27-20 [facility] (1 source) Penicillin Drug Allergy 03-27-20 [facility] Medications Current Medications Medication Drug Class(es) Dates Sig (Normalized) Sig (Original) [id number] 200 actuat albuterol 0.09 mg/actuat metered dose [...] Active benzoyl peroxide 0.05 mg/mg topical gel (9 sources) benzoyl peroxide 5 % gel Apply topically Daily Active celecoxib 200 mg oral capsule (2 sources) Nonsteroidal Anti-inflammatory Drug Start: 07-20-2024 take 1 capsule by mouth twice daily as needed for pain celecoxib (CeleBREX) 200 MG capsule Indications: Arthralgia, unspecified joint Take 1 capsule (200 mg) by mouth 2 (two) times a day as needed for mild pain Take with food 30 capsule 3 07/20/2024 Active clindamycin 0.01 mg/mg topical gel (9 sources) Lincosamide Antibacterial Start: 01-14-2024 clindamycin (Clindagel) 1 % gel Indications: Acne vulgaris Apply topically Daily before meals 60 g 11 01/14/2024 Active dextromethorphan hydrobromide 15 mg / guaiFENesin 400 mg / pseudoephedrine hydrochloride 60 mg oral tablet (2 sources) alpha-Adrenergic Agonist, Uncompetitive P-qrgffd-D-aspartat e Receptor Antagonist, Sigma-1 Agonist Start: 03-27-2024 take 4 tablets by mouth every twenty-four hours as needed Pseudoephedrine- Dm-Guaifenesin (Capmist Dm) 60-15-400 mg tablet Active 1 TAB PO EVERY 4-6 HOURS as needed for cold symptoms March 26, 2024 11:00pm do not exceed 4 doses per 24 hrs doxycycline monohydrate 100 mg oral capsule (12 sources) Tetracycline-class Drug Start: 03-27-2024 take 1 capsule by mouth once daily Doxycycline Monohydrate 100 mg capsule Active 100 MG PO Daily March 26, 2024 11:00pm Start: 01-14-2024 take 1 capsule by mo uth twice daily doxycycline (Monodox) 100 MG capsule Indications: Acne vulgaris Take 1 capsule, by mouth, bid, 30 days 60 capsule 11 01/14/2024 Active Start: 04-24-2023 take 1 tablet by sofya every twelve hours Doxycycline Hyclate 100 MG 1 tablet Orally Twice a day for 10 day(s) Apr, Active ferrous gluconate 324 mg oral tablet (12 sources) Start: 11-02-2023 take 1 tablet by mouth once daily Ferrous Gluconate 324 mg (37.5 mg iron) tablet Active 324 MG PO Daily November 01, 2023 11:00pm FLUoxetine 10 mg oral capsule (13 sources) Serotonin Reuptake Inhibitor Start: 11-02-2023 take 1 capsule by mouth once daily Fluoxetine 10 mg capsule Active 10 MG PO Daily November 01, 2023 11:00pm take 1 capsule by mo [facility] every twenty-four hours PROzac 10 MG 1 capsule Orally Once a day Active Iron (1 source) take 1 tablet by mouth once daily Iron 240 (27 Fe) MG 1 tablet Orally once a day Active predniSONE 20 mg oral tablet (3 sources) Start: 03-27-2024 take 1 tablet by mouth twice daily Prednisone 20 mg tablet Active 20 MG PO Twice daily 03 18March 26, 2024 11:00pm Start: 04-24-2023 take 1 tablet by sofya every twelve hours predniSONE 20 MG 1 tablet Orally bid for 5 day(s) Apr, Active tretinoin 0.25 mg/ml topical cream (9 sources) Retinoid Start: 01-14-2024 tretinoin (Ret in-A) [...] Mar, Not-Taking minocycline 100 mg oral capsule (3 sources) Tetracycline-class Drug Start: 11-02-2023 End: 03-27-2024 take 1 capsule by mouth twice daily Minocycline 100 mg capsule Discontinued 100 MG PO Twice daily November 01, 2023 11:00pm March 27, 2024 11:29am Problems Problem Classification Problem Date Documented Da te Episodic/Chronic Abdominal pain (1 source) Unspecified abdominal pain; Translations: [UNSPECIFIED ABDOMINAL PAIN] Onset: 12-16-2021 Episodic Anxiety disorders (7 sources) Generalized anxiety disorder; Translations: [Generalized anxiety disorder] Onset: 06-29-2024 06-29-2024 Chronic Asthma (1 source) Exacerbation of asthma; Translations: [Unspecified asthma with (acute) exacerbation] Chronic Blindness and vision defects (6 sources) Eye / vision finding; Translations: [Unspecified visual disturbance] Onset: 07-20-2024 07-20-2024 Episodic Chronic obstructive pulmonary disease and bronchiectasis (1 source) Bronchitis, not specified as acute or chronic Episodic Conditions associated with dizziness or vertigo (6 sources) Dizziness; Translations: [Dizziness and giddiness] Onset: 07-20-2024 07-20-2024 Episodic Deficiency and other anemia (9 sources) Iron deficiency anemia; Translations: [Iron deficiency anemia, unspecified] Onset: 06-29-2024 06-29-2024 Episodic Esophageal disorders (1 source) Gastro-esophageal reflux disease without esophagitis; Translations: [GERD WITHOUT ESOPHAGITIS] Onset: 12-16-2021 Chronic Immunizations and screening for infectious disease (8 sources) Contact with or exposure to other viral diseases; Translations: [Exposure to 2019 novel coronavirus] Onset: 07-04-2024 03-27-2024 Episodic Malaise and fatigue (1 source) Other fatigue; Translations: [OTHER FATIGUE] Onset: 12-16-2021 Episodic Mood disorders (7 sources) Recurrent major depressive episodes, mild ; Translations: [Major depressive disorder, recurrent, mild] Onset: 06-29-2024 06-29-2024 Chronic Nausea and vomiting (3 sources) Nausea with vomiting, unspecified; Translations: [NAUSEA WITH VOMITING UNSPECIFIED] Onset: 12-11-2021 Episodic Other gastrointestinal disorders (1 source) Constipation, unspecified; Translations: [CONSTIPATION UNSPECIFIED] Onset: 12-16-2021 Episodic Other nervous system disorders (11 sources) Disorder of autonomic nervous system; Translations: [Disorder of the autonomic nervous system, unspecified] Onset: 06-29-2024 06-29-2024 Chronic Other non-traumatic joint disorders (11 sources) Joint pain; Translations: [Pain in unspecified joint] Onset: 06-29-2024 06-29-2024 Episodic Other skin disorders (7 sources) Acne vulgaris; Translations: [Acne vulgaris] Onset: 06-29-2024 06-29-2024 Episodic Other upper respiratory disease (1 source) Allergic rhinitis; Translations: [Allergic rhinitis, unspecified] Chronic Other upper respiratory infections (4 sources) Viral upper respiratory tract infection; Translations: [Acute upper respiratory infection, unspecified] 11-02-2023 Episodic Residual codes; unclassified (6 sources) Forgetful; Translations: [Other general symptoms and signs] Onset: 07-20-2024 07-20-2024 Episodic Unclassified (1 source) CONTACT W/AND (SUSP) EXPOS COVID-19; Translations: [CONTACT W/AND (SUSP) EXPOS COVID-19] Onset: 12-16-2021 Results Test Name Value Interpretation Reference Range Facility Appearance of UrineOrdered B y: Kelsey Sandoval on 07-26-2024 Appearance (U) Urine appearance Abnormal Clear [facility] Bacteria [Presence] in Urine by AutomatedOrdered By: Kelsey Sandoval on 07-26-2024 Bacteria Auto Ql (U) Bacteria [Presence] in Urine by Automated None Seen [facility] Basophils Auto (Bld) [#/Vol] Ordered By: Kelsey Sandoval on 07-26-2024 Basophils (Bld) [#/Vol] Automated basophil count 0.0-0.2 [facility] Basophils/100 WBC Auto (Bld) Ordered By: Kelsey Sandoval on 07-26-2024 Basophils/100 WBC (Bld) Automated basophil % . [facility] Bilirubin Test strip Ql (U)O rdered By: Kelsey Sandoval on 07-26-2024 Bilirubin Ql (U) Bilirubin.total [Presence] in Urine by Test strip Negative [facility] C reactive protein [Mass/vol ume] in Serum or PlasmaOrdered By: Kelsey Sandoval on 07-26-2024 CRP [Mass/Vol] C reactive protein [Mass/volume] in Serum or Plasma 0.0-0.5 [facility] C-Reactive Proteinon 025 CRP [Mass/Vol] mg/L Normal 0.0-0.5 [facility] Comment on above: Result Comment: PERF ORMED BY: [place] [address] PATHOLOGIST DEVELOPMENTAL SERVICES WORKER LATISHA BALES M.D. Performed By: #### C 4, CH50, C3 #### [facility] , #### CK, CREAT, CRP, ADDONUAPLUS, CBC, ESR #### [facility] [address] [place] [address] Color Auto (U)Ordered By: Cynthia Sandoval on 07-26-2024 Color (U) Color of Urine by Auto Yellow [facility] Complement C3on 07-26-2024 Complement C3 119 mg/dL Normal 82-167 [facility] Comment on above: Result Comment: Perf ormed at: - [facility] [address] [id number] Wildlife Rehabilitator: Horacio Ramesh PhD, Phone: [phone] Performed By: #### C 4, CH50, C3 #### [facility] , #### CK, CREAT, CRP, ADDONUAPLUS, CBC, ESR #### [facility] [address] [place] [address] [place] Complement C4on 07-26-2024 Complement C4 24 mg/dL Normal 12-38 [facility] Comment on above: Result Comment: PERF ORMED BY: [place] [address] PATHOLOGIST DEVELOPMENTAL SERVICES WORKER LATISHA BALES M.D. Performed By: #### C 4, CH50, C3 #### [facility] , #### CK, CREAT, CRP, ADDONUAPLUS, CBC, ESR #### [address] Complement Total (CH50)on Complement Total (CH50) 53 Normal >41 [facility] Comment on above: Result Comment: Age Male Female 1 - 30 days Not Estab. Not Estab. 31 days - 6 months >32 >20 7 months - 17 years >39 >39 >17 years >41 >41 NOTE: The adult ( >17 years ) reference interval range is used to flag abnormals on this report. If the patient is 17 years old or younger, use the table above to determine out of range values. Performed at: - [facility] [id number] Wildlife Rehabilitator: Horacio Ramesh PhD, Phone: [phone] PERFORMED BY: [place] [address] PATHOLOGIST DEVELOPMENTAL SERVICES WORKER LATISHA BALES M.D. Performed By: #### C 4, CH50, C3 #### [facility] , #### CK, CREAT, CRP, ADDONUAPLUS, CBC, ESR #### [address] Complete Blood Count Auto Di ffon 07-26-2024 Basophils (Bld) [#/Vol] 0.0 10*3/uL Normal 0.0-0.2 [facility] Comment on above: Performed By: #### C 4, CH50, C3 #### [facility] , #### CK, CREAT, CRP, ADDONUAPLUS, CBC, ESR #### [address] Basophils/100 WBC (Bld) 0.7 % Normal . [facility] Comment on above: Performed By: #### C 4, CH50, C3 #### [facility] , #### CK, CREAT, CRP, ADDONUAPLUS, CBC, ESR #### [address] Eosinophils (Bld) [#/Vol] 0.3 10*3/uL Normal 0.0-0.45 [facility] Comment on above: Performed By: #### C 4, CH50, C3 #### [facility] , #### CK, CREAT, CRP, ADDONUAPLUS, CBC, ESR #### [address] Eosinophils/100 WBC (Bld) 5.0 % Normal . [facility] Comment on above: Performed By: #### C 4, CH50, C3 #### [facility] , #### CK, CREAT, CRP, ADDONUAPLUS, CBC, ESR #### [address] Erythrocyte distribution width (RBC) [Ratio] 13.3 % Normal 11.9-15.3 [facility] Comment on above: Performed By: #### C 4, CH50, C3 #### [facility] , #### CK, CREAT, CRP, ADDONUAPLUS, CBC, ESR #### [address] Hematocrit (Bld) [Volume fraction] 41.1 % Normal 34.0-46.4 [facility] Comment on above: Performed By: #### C 4, CH50, C3 #### [facility] , #### CK, CREAT, CRP, ADDONUAPLUS, CBC, ESR #### [address] Hemoglobin (Bld) [Mass/Vol] 13.9 g/dL Normal 11.8-15.4 [facility] Comment on above: Performed By: #### C 4, CH50, C3 #### [facility] , #### CK, CREAT, CRP, ADDONUAPLUS, CBC, ESR #### [address] Lymphocytes (Bld) [#/Vol] 2.5 10*3/uL Normal 1.00-4.8 [facility] Comment on above: Performed By: #### C 4, CH50, C3 #### [facility] , #### CK, CREAT, CRP, ADDONUAPLUS, CBC, ESR #### [address] Lymphocytes/100 WBC (Bld) 45.0 % Normal . [facility] Comment on above: Performed By: #### C 4, CH50, C3 #### [facility] , #### CK, CREAT, CRP, ADDONUAPLUS, CBC, ESR #### [address] MCH (RBC) [Entitic mass] 30.3 pg Normal 24.7-34.3 [facility] Comment on above: Performed By: #### C 4, CH50, C3 #### [facility] , #### CK, CREAT, CRP, ADDONUAPLUS, CBC, ESR #### [address] MCV (RBC) [Entitic vol] 89.5 fL Normal 80-100 [facility] Comment on above: Performed By: #### C 4, CH50, C3 #### [facility] , #### CK, CREAT, CRP, ADDONUAPLUS, CBC, ESR #### [address] Mean Corpuscular HGB Conc 33.9 g/dL Normal 32.0-35.0 [facility] Comment on above: Performed By: #### C 4, CH50, C3 #### [facility] , #### CK, CREAT, CRP, ADDONUAPLUS, CBC, ESR #### [address] Monocytes (Bld) [#/Vol] 0.3 10*3/uL Normal 0.0-0.8 [facility] Comment on above: Performed By: #### C 4, CH50, C3 #### [facility] , #### CK, CREAT, CRP, ADDONUAPLUS, CBC, ESR #### [address] Monocytes/100 WBC (Bld) 6.2 % Normal . [facility] Comment on above: Performed By: #### C 4, CH50, C3 #### [facility] , #### CK, CREAT, CRP, ADDONUAPLUS, CBC, ESR #### [address] Neutrophils (Bld) [#/Vol] 2.4 10*3/uL Normal 1.8-7.7 [facility] Comment on above: Performed By: #### C 4, CH50, C3 #### [facility] , #### CK, CREAT, CRP, ADDONUAPLUS, CBC, ESR #### [address] Neutrophils/100 WBC (Bld) 43.1 % Normal . [facility] Comment on above: Performed By: #### C 4, CH50, C3 #### [facility] , #### CK, CREAT, CRP, ADDONUAPLUS, CBC, ESR #### [address] NRBC% 0.2 /100{WBC} Normal 0-0.5 [facility] Comment on above: Performed By: #### C 4, CH50, C3 #### [facility] , #### CK, CREAT, CRP, ADDONUAPLUS, CBC, ESR #### [address] Platelet mean volume (Bld) [Entitic vol] 8.3 fL Normal 6.3-10.7 [facility] Comment on above: Performed By: #### C 4, CH50, C3 #### [facility] , #### CK, CREAT, CRP, ADDONUAPLUS, CBC, ESR #### [address] Platelets (Bld) [#/Vol] 210 10*3/uL Normal 150-450 [facility] Comment on above: Performed By: #### C 4, CH50, C3 #### [facility] , #### CK, CREAT, CRP, ADDONUAPLUS, CBC, ESR #### [address] RBC (Bld) [#/Vol] 4.59 10*6/uL Normal 3.60-5.00 [facility] Comment on above: Performed By: #### C 4, CH50, C3 #### [facility] , #### CK, CREAT, CRP, ADDONUAPLUS, CBC, ESR #### [address] WBC (Bld) [#/Vol] 5.6 10*3/uL Normal 3.8-11.6 [facility] Comment on above: Performed By: #### C 4, CH50, C3 #### [facility] , #### CK, CREAT, CRP, ADDONUAPLUS, CBC, ESR #### [address] Creatine Kinaseon 07-26-2024 CK [Catalytic activity/Vol] 32 U/L Normal 30-223 [facility] Comment on above: Result Comment: PERF ORMED BY: [place] [address] PATHOLOGIST DEVELOPMENTAL SERVICES WORKER LATISHA BALES M.D. Performed By: #### C 4, CH50, C3 #### [facility] , #### CK, CREAT, CRP, ADDONUAPLUS, CBC, ESR #### [address] Creatine kinase [Enzymatic a ctivity/volume] in Serum or PlasmaOrdered By: Kelsey Sandoval on 07-26-2024 CK [Catalytic activity/Vol] Creatine kinase [Enzymatic activity/volume] in Serum or Plasma 30 [facility] Creatinineon 07-26-2024 Creatinine [Mass/Vol] 0.66 mg/dL Normal 0.60-1.20 [facility] Comment on above: Performed By: #### C 4, CH50, C3 #### [facility] , #### CK, CREAT, CRP, ADDONUAPLUS, CBC, ESR #### [place] [address] [place] GFR/1.73 sq M.predicted MDRD (S/P/Bld) [Vol rate/Area] mL/min/{1.73_m2} Normal [facility] Comment on above: Performed By: #### C 4, CH50, C3 #### [facility] , #### CK, CREAT, CRP, ADDONUAPLUS, CBC, ESR #### [place] [address] [place] Creatinine [Mass/volume] in Serum or PlasmaOrdered By: Kelsey Sandoval on 07-26-2024 Creatinine [Mass/Vol] Creatinine [Mass/volume] in Serum or Plasma 0.60-1.20 [facility] Dipstick and Microscopicon 0 07-26-2024 Appearance (U) Cloudy Critically abnormal Clear [facility] Comment on above: Order Comment: Name Collection Type:: Clean-Voided Midstream Performed By: #### C 4, CH50, C3 #### [facility] , #### CK, CREAT, CRP, ADDONUAPLUS, CBC, ESR #### [address] Bacteria,Urine None Seen Normal None Seen [facility] Comment on above: Order Comment: Name Collection Type:: Clean-Voided Midstream Performed By: #### C 4, CH50, C3 #### [facility] , #### CK, CREAT, CRP, ADDONUAPLUS, CBC, ESR #### [address] Bilirubin,Urine Negative Normal Negative [facility] Comment on above: Order Comment: Name Collection Type:: Clean-Voided Midstream Performed By: #### C 4, CH50, C3 #### [facility] , #### CK, CREAT, CRP, ADDONUAPLUS, CBC, ESR #### [address] Color (U) Light-Yellow Normal Yellow [facility] Comment on above: Order Comment: Name Collection Type:: Clean-Voided Midstream Performed By: #### C 4, CH50, C3 #### [facility] , #### CK, CREAT, CRP, ADDONUAPLUS, CBC, ESR #### [address] Glucose Ql (U) Normal Normal Normal [facility] Comment on above: Order Comment: Name Collection Type:: Clean-Voided Midstream Performed By: #### C 4, CH50, C3 #### [facility] , #### CK, CREAT, CRP, ADDONUAPLUS, CBC, ESR #### [address] Hyaline Casts,Urine None Normal 0-8 [facility] Comment on above: Order Comment: Name Collection Type:: Clean-Voided Midstream Performed By: #### C 4, CH50, C3 #### [facility] , #### CK, CREAT, CRP, ADDONUAPLUS, CBC, ESR #### [address] Ketones Ql (U) Negative Normal Negative [facility] Comment on above: Order Comment: Name Collection Type:: Clean-Voided Midstream Performed By: #### C 4, CH50, C3 #### [facility] , #### CK, CREAT, CRP, ADDONUAPLUS, CBC, ESR #### [address] Leukocyte esterase Test strip Ql (U) Negative Normal Negative [facility] Comment on above: Order Comment: Name Collection Type:: Clean-Voided Midstream Performed By: #### C 4, CH50, C3 #### [facility] , #### CK, CREAT, CRP, ADDONUAPLUS, CBC, ESR #### [address] Mucus,Urine Rare Normal [facility] Comment on above: Order Comment: Name Collection Type:: Clean-Voided Midstream Result Comment: PERF ORMED BY: [place] [address] PATHOLOGIST DEVELOPMENTAL SERVICES WORKER LATISHA BALES M.D. Performed By: #### C 4, CH50, C3 #### [facility] , #### CK, CREAT, CRP, ADDONUAPLUS, CBC, ESR #### [address] Nitrite,Urine Negative Normal Negative [facility] Comment on above: Order Comment: Name Collection Type:: Clean-Voided Midstream Performed By: #### C 4, CH50, C3 #### [facility] , #### CK, CREAT, CRP, ADDONUAPLUS, CBC, ESR #### [address] Occult Blood,Urine Negative Normal Negative [facility] Comment on above: Order Comment: Name Collection Type:: Clean-Voided Midstream Performed By: #### C 4, CH50, C3 #### [facility] , #### CK, CREAT, CRP, ADDONUAPLUS, CBC, ESR #### [address] pH (U) 7.5 [pH] Normal 5.0-9.0 [facility] Comment on above: Order Comment: Name Collection Type:: Clean-Voided Midstream Performed By: #### C 4, CH50, C3 #### [facility] , #### CK, CREAT, CRP, ADDONUAPLUS, CBC, ESR #### [address] Protein,Urine Negative Normal Negative [facility] Comment on above: Order Comment: Name Collection Type:: Clean-Voided Midstream Performed By: #### C 4, CH50, C3 #### [facility] , #### CK, CREAT, CRP, ADDONUAPLUS, CBC, ESR #### [place] [address] [place] RBC,Urine 1-2 Normal 0-4 [facility] Comment on above: Order Comment: Name Collection Type:: Clean-Voided Midstream Performed By: #### C 4, CH50, C3 #### [facility] , #### CK, CREAT, CRP, ADDONUAPLUS, CBC, ESR #### [place] [address] [place] Specificy [place],Urine 1.024 Normal 1.001-1.030 [facility] Comment on above: Order Comment: Name Collection Type:: Clean-Voided Midstream Performed By: #### C 4, CH50, C3 #### [facility] , #### CK, CREAT, CRP, ADDONUAPLUS, CBC, ESR #### [address] Squamous Epithelial Cell,Urine 3-4 High 0-2 [facility] Comment on above: Order Comment: Name Collection Type:: Clean-Voided Midstream Performed By: #### C 4, CH50, C3 #### [facility] , #### CK, CREAT, CRP, ADDONUAPLUS, CBC, ESR #### [address] Urobilinogen,Urine Normal Normal Normal [facility] Comment on above: Order Comment: Name Collection Type:: Clean-Voided Midstream Performed By: #### C 4, CH50, C3 #### [facility] , #### CK, CREAT, CRP, ADDONUAPLUS, CBC, ESR #### [address] WBC,Urine 3-4 Normal 0-4 [facility] Comment on above: Order Comment: Name Collection Type:: Clean-Voided Midstream Performed By: #### C 4, CH50, C3 #### [facility] , #### CK, CREAT, CRP, ADDONUAPLUS, CBC, ESR #### [address] Eosinophils Auto (Bld) [#/Vo l]Ordered By: Kelsey Sandoval on 07-26-2024 Eosinophils (Bld) [#/Vol] Automated eosinophil count 0.0-0.45 [facility] Eosinophils/100 WBC Auto (Bl d)Ordered By: Kelsey Sandoval on 07-26-2024 Eosinophils/100 WBC (Bld) Automated eosinophil % . [facility] Epithelial cells.squamous [# /area] in Urine sediment by Automated countOrdered By: Kelsey Sandoval on 07-26-2024 Epithelial cells.squamous Auto (Urine sed) [#/Area] Epithelial cells.squamous [#/area] in Urine sediment by Automated count High 0-2 [facility] Erythrocyte Sedimentation Ra latoya 07-26-2024 ESR (Bld) [Velocity] 9 mm/h Normal 0-19 [facility] Comment on above: Result Comment: PERF ORMED BY: [facility] [address] [place] [address] PATHOLOGIST DEVELOPMENTAL SERVICES WORKER LATISHA BALES M.D. Performed By: #### C 4, CH50, C3 #### [facility] , #### CK, CREAT, CRP, ADDONUAPLUS, CBC, ESR #### [facility] [address] Erythrocyte distribution wid th Auto (RBC) [Ratio]Ordered By: Kelsey Sandoval on 07-26-2024 Erythrocyte distribution width (RBC) [Ratio] Erythrocyte distribution width [Ratio] by Automated count 11.9-15.3 [facility] Erythrocyte sedimentation ra te by Photometric methodOrdered By: Kelsey Sandoval on 07-26-2024 ESR Photometric method (Bld) [Velocity] Erythrocyte sedimentation rate by Photometric method 0-19 [facility] Erythrocytes [#/area] in Uri ne sediment by Automated countOrdered By: Kelsey Sandoval on 07-26-2024 RBC Auto (Urine sed) [#/Area] Erythrocytes [#/area] in Urine sediment by Automated count 0-4 [facility] Glucose [Mass/volume] in Uri ne by Test stripOrdered By: Kelsey Sandoval on 07-26-2024 Glucose Test strip (U) [Mass/Vol] Glucose [Mass/volume] in Urine by Test strip Normal [facility] Hematocrit Auto (Bld) [Volum e fraction]Ordered By: Kelsey Sandoval on 07-26-2024 Hematocrit (Bld) [Volume fraction] Hematocrit [Volume Fraction] of Blood by Automated count 34.0-46.4 [facility] Hemoglobin Test strip Ql (U) Ordered By: Kelsey Sandoval on 07-26-2024 Hemoglobin Ql (U) Hemoglobin [Presence ] in Urine by Test strip Negative [facility] Hemoglobin [Mass/volume] in BloodOrdered By: Kelsey Sandoval on 07-26-2024 Hemoglobin (Bld) [Mass/Vol] Hemoglobin [Mass/volume] in Blood 11.8-15.4 [facility] Hyaline casts [#/area] in Ur ine sediment by Automated countOrdered By: Kelsey Sandoval on 07-26-2024 Hyaline casts Auto (Urine sed) [#/Area] Hyaline casts [#/area] in Urine sediment by Automated count 0-8 [facility] Ketones Test strip Ql (U)Ord ered By: Kelsey Sandoval on 07-26-2024 Ketones Ql (U) Ketones [Presence] i n Urine by Test strip Negative [facility] Leukocyte esterase [Presence ] in Urine by Test stripOrdered By: Kelsey Sandoval on 07-26-2024 Leukocyte esterase Test strip Ql (U) Leukocyte esterase [Presence] in Urine by Test strip Negative [facility] Leukocytes [#/area] in Urine sediment by Automated countOrdered By: Kelsey Sandoval on 07-26-2024 WBC Auto (Urine sed) [#/Area] Leukocytes [#/area] in Urine sediment by Automated count 0-4 [facility] Leukocytes [#/volume] correc abner for nucleated erythrocytes in Blood by Automated counOrdered By: Kelsey Sandoval on 07-26-2024 WBC corrected for nucl RBC Auto (Bld) [#/Vol] Leukocytes [#/volume] corrected for nucleated erythrocytes in Blood by Automated coun 3.8-11.6 [facility] Lymphocytes Auto (Bld) [#/Vo l]Ordered By: Kelsey Sandoval on 07-26-2024 Lymphocytes (Bld) [#/Vol] Lymphocytes [#/volume] in Blood by Automated count 1.00-4.8 [facility] Lymphocytes/100 WBC Auto (Bl d)Ordered By: Kelsey Sandoval on 07-26-2024 Lymphocytes/100 WBC (Bld) Lymphocytes/100 leukocytes in Blood by Automated count . [facility] MCH Auto (RBC) [Entitic mass ]Ordered By: Kelsey Sandoval on 07-26-2024 MCH (RBC) [Entitic mass] MCH [Entitic mass] by Automated count 24.7-34.3 [facility] MCHC Auto (RBC) [Mass/Vol]Or dered By: Kelsey Sandoval on 07-26-2024 MCHC (RBC) [Mass/Vol] MCHC [Mass/volume] by Automated count 32.0-35.0 [facility] MCV Auto (RBC) [Entitic vol] Ordered By: Kelsey Sandoval on 07-26-2024 MCV (RBC) [Entitic vol] MCV [Entitic volume] by Automated count 80-100 [facility] Monocytes Auto (Bld) [#/Vol] Ordered By: Kelsey Sandoval on 07-26-2024 Monocytes (Bld) [#/Vol] Automated blood monocyte count 0.0-0.8 [facility] Monocytes/100 WBC Auto (Bld) Ordered By: Kelsey Sandoval on 07-26-2024 Monocytes/100 WBC (Bld) Automated monocyte % . [facility] Mucus [Presence] in Urine by AutomatedOrdered By: Kelsey Sandoval on 07-26-2024 Mucus Auto Ql (U) Mucus [Presence] in Urine by Automated [facility] Neutrophils Auto (Bld) [#/Vo l]Ordered By: Kelsey Sandoval on 07-26-2024 Neutrophils (Bld) [#/Vol] Neutrophils [#/volume] in Blood by Automated count 1.8-7.7 [facility] Neutrophils/100 WBC Auto (Bl d)Ordered By: Kelsey Sandoval on 07-26-2024 Neutrophils/100 WBC (Bld) Automated neutrophil % . [facility] Nitrite Test strip Ql (U)Ord ered By: Kelsey Sandoval on 07-26-2024 Nitrite Ql (U) Nitrite [Presence] i n Urine by Test strip Negative [facility] No Panel InformationOrdered By: Kelsey Sandoval on 07-26-2024 Estimated GFR (CKD-EPI) > 60.0 mL/Min [facility] Creatinine Clearance (Chem N/A [facility] Nucleated erythrocytes [Pres ence] in Blood by Automated countOrdered By: Kelsey Sandoval on 07-26-2024 Nucleated RBC Auto Ql (Bld) Nucleated erythrocytes [Presence] in Blood by Automated count 0-0.5 [facility] Platelet mean volume Auto (B ld) [Entitic vol]Ordered By: Kelsey Sandoval on 07-26-2024 Platelet mean volume (Bld) [Entitic vol] Platelet mean volume [Entitic volume] in Blood by Automated count 6.3-10.7 [facility] Platelets Auto (Bld) [#/Vol] Ordered By: Kelsey Sandoval on 07-26-2024 Platelets (Bld) [#/Vol] Platelets [#/volume] in Blood by Automated count 150-450 [facility] Protein Test strip (U) [Mass /Vol]Ordered By: Kelsey Sandoval on 07-26-2024 Protein (U) [Mass/Vol] Protein [Mass/vol ume] in Urine by Test strip Negative [facility] RBC Auto (Bld) [#/Vol]Ordere d By: Kelsey Sandoval on 07-26-2024 RBC (Bld) [#/Vol] Erythrocytes [#/volume] in Blood by Automated count 3.60-5.00 [facility] Specific gravity Test strip (U) [Rel density]Ordered By: Kelsey Sandoval on 07-26-2024 Specific gravity (U) [Rel density] Specific gravity of Urine by Test strip 1.001-1.030 [facility] Urobilinogen Test strip (U) [Mass/Vol]Ordered By: Kelsey Sandoval on 07-26-2024 Urobilinogen (U) [Mass/Vol] Urobilinogen [Mass/volume] in Urine by Test strip Normal [facility] WBC Auto (Bld) [#/Vol]Ordere d By: Kelsey Sandoval on 07-26-2024 WBC (Bld) [#/Vol] Leukocytes [#/volume ] in Blood by Automated count 3.8-11.6 [facility] pH Test strip (U)Ordered By: Kelsey Sandoval on 07-26-2024 pH (U) pH of Urine by Test strip 5.0-9.0 [facility] ALL SED RATEon 07-01-2024 TBH SED RATE 18 [facility]INF [facility] No Panel InformationOrdered By: Romelia Kirk on 11-02-2023 Quick Strep (POC) [facility] CBC AUTO DIFFon 12-11-2021 BASO # 0.0 103/ul Normal 0.0-0.1 [facility] Comment on above: Performed By: #### C BC #### [facility] [address] [place] [address] Dr. Delphine Small Basophils/100 WBC (Bld) 0.5 % Normal 0.2-2.0 [facility] Comment on above: Performed By: #### C BC #### [facility] [address] [place] [address] Dr. Delphine Small EO # 0.2 103/ul Normal 0.0-0.7 [facility] Comment on above: Performed By: #### C BC #### [facility] [address] [place] [address] Dr. Delphine Small Eosinophils/100 WBC (Bld) 2.6 % Normal 0.9-7.0 [facility] Comment on above: Performed By: #### C BC #### [facility] [address] [place] [address] Dr. Delphine Small Erythrocyte distribution width (RBC) [Ratio] 11.6 % Normal 11.0-15.0 [facility] Comment on above: Performed By: #### C BC #### [facility] [address] [place] [address] Dr. Delphine Small Hematocrit (Bld) [Volume fraction] 38.6 % Normal 36.0-48.0 [facility] Comment on above: Performed By: #### C BC #### [facility] [address] [place] [address] Dr. Delphine Small Hemoglobin (Bld) [Mass/Vol] 13.1 g/dL Normal 12.0-16.0 [facility] Comment on above: Performed By: #### C BC #### [facility] [address] [place] [address] Dr. Delphine Small IG # 0.01 10e3/ul Normal 0.00-0.03 [facility] Comment on above: Performed By: #### C BC #### [facility] [address] [place] [address] Dr. Delphine Small IG % 0.2 % Normal 0.0-0.5 [facility] Comment on above: Performed By: #### C BC #### [facility] [address] [place] [address] Dr. Delphine Small LYMPH # 2.7 103/ul Normal 1.2-3.8 [facility] Comment on above: Performed By: #### C BC #### [facility] [address] [place] [address] Dr. Delphine Small Lymphocytes/100 WBC (Bld) 44.0 % Normal 20.5-60.0 [facility] Comment on above: Performed By: #### C BC #### [facility] [address] [place] [address] Dr. Delphine Small MANUAL DIFF REQ NO Normal [facility] Comment on above: Performed By: #### C BC #### [facility] [address] [place] [address] Dr. Delphine Small MCH (RBC) [Entitic mass] 30.2 pg Normal 26.7-34.0 [facility] Comment on above: Performed By: #### C BC #### [facility] [address] [place] [address] Dr. Delphine Small MCHC (RBC) [Mass/Vol] 33.9 g/dL Normal 29.9-35.2 [facility] Comment on above: Performed By: #### C BC #### [facility] [address] [place] [address] Dr. Delphine Small MCV (RBC) [Entitic vol] 88.9 fL Normal 81.0-99.0 [facility] Comment on above: Performed By: #### C BC #### [facility] [address] [place] [address] Dr. Delphine Small MONO # 0.4 103/ul Normal 0.3-0.8 [facility] Comment on above: Performed By: #### C BC #### [facility] [address] [place] [address] Dr. Delphine Small Monocytes/100 WBC (Bld) 6.9 % Normal 1.7-12.0 [facility] Comment on above: Performed By: #### C BC #### [facility] [address] [place] [address] Dr. Delphine Small NEUT # 2.9 103/ul Normal 1.4-6.5 [facility] Comment on above: Performed By: #### C BC #### [facility] [address] [place] [address] Dr. Delphine Small Neutrophils/100 WBC (Bld) 45.8 % Normal 43.0-75.0 [facility] Comment on above: Performed By: #### C BC #### [facility] [address] [place] [address] Dr. Delphine Small Platelet mean volume (Bld) [Entitic vol] 9.7 fL Normal 9.5-13.5 [facility] Comment on above: Performed By: #### C BC #### [facility] [address] [place] [address] Dr. Delphine Small PLT 182 103/ul Normal 150-450 [facility] Comment on above: Performed By: #### C BC #### [facility] [address] [place] [address] Dr. Delphine Small RBC 4.34 106/ul Normal 4.20-5.40 [facility] Comment on above: Performed By: #### C BC #### [facility] [address] [place] [address] Dr. Delphine Small WBC 6.2 103/ul Normal 4.0-11.0 [facility] Comment on above: Performed By: #### C BC #### [facility] [address] [place] [address] Dr. Delphine Small [facility]on [facility]14 SARS-CoV-2 (COVID-19) RNA RUDY+probe Ql (Unsp spec) Not detected Normal NOT DETECTED [facility] Comment on above: Result Comment: When [...] for this test is supported by the Publications Distribution Clerk of Health and Human Service's declaration that [...] longer be used). Performed By: #### C [facility] #### [facility] [address] [place] [address] Dr. Delphine Small PROF 14(COMP METB)on 022 Albumin [Mass/Vol] 3.8 g/dL Normal 3.4-5.0 [facility] Comment on above: Performed By: #### C MP #### [facility] [address] [place] [address] Dr. Delphine Small Albumin/Globulin [Mass ratio] 1.1 {ratio} Normal [facility] Comment on above: Performed By: #### C MP #### [facility] [address] [place] [address] Dr. Delphine Small ALP [Catalytic activity/Vol] 77 U/L Normal 46-116 [facility] Comment on above: Performed By: #### C MP #### [facility] [address] [place] [address] Dr. Delphine Small ALT [Catalytic activity/Vol] 24 U/L Normal 14-59 [facility] Comment on above: Performed By: #### C MP #### [facility] [address] [place] [address] Dr. Delphine Small Anion gap [Moles/Vol] 11.8 mmol/L Normal [facility] Comment on above: Performed By: #### C MP #### [facility] [address] [place] [address] Dr. Delphine Small AST [Catalytic activity/Vol] 16 U/L Normal 15-37 [facility] Comment on above: Performed By: #### C MP #### [facility] [address] [place] [address] Dr. Delphine Small Bilirubin [Mass/Vol] 0.8 mg/dL Normal 0.2-1.0 [facility] Comment on above: Performed By: #### C MP #### [facility] [address] [address] [address] Delphine Small Calcium [Mass/Vol] 8.6 mg/dL Normal 8.5-10.1 [facility] Comment on above: Performed By: #### C MP #### [facility] [address] [address] [address] Delphine Small Chloride [Moles/Vol] 103 mmol/L Normal 98-107 [facility] Comment on above: Performed By: #### C MP #### [facility] [address] [place] [address] Dr. Delphine Small CO2 [Moles/Vol] 27.8 mmol/L Normal 21.0-32.0 [facility] Comment on above: Performed By: #### C MP #### [facility] [address] [place] [address] Dr. Delphine Small Creatinine [Mass/Vol] 0.70 mg/dL Normal 0.55-1.02 [facility] Comment on above: Performed By: #### C MP #### [facility] [address] [place] [address] Dr. Delphine Small EGFR-AF MONTENEGRIN >60 Normal >=60 [facility] Comment on above: Performed By: #### C MP #### [facility] [address] [address] [address] Delphine Small EGFR-NON AF MONTENEGRIN >60 Normal >=60 [facility] Comment on above: Performed By: #### C MP #### [facility] [address] [address] [address] Delphine Small Globulin (S) [Mass/Vol] 3.6 g/dL Normal [facility] Comment on above: Performed By: #### C MP #### [facility] [address] [address] [address] Delphine Small Glucose [Mass/Vol] 94 mg/dL Normal 74-106 [facility] Comment on above: Performed By: #### C MP #### [facility] [address] [address] [address] Delphine Small Potassium [Moles/Vol] 3.6 mmol/L Normal 3.5-5.1 [facility] Comment on above: Performed By: #### C MP #### [facility] [address] [address] [address] Delphine Small Protein [Mass/Vol] 7.4 g/dL Normal 6.4-8.2 [facility] Comment on above: Performed By: #### C MP #### [facility] [address] [address] [address] Delphine Small Sodium [Moles/Vol] 139 mmol/L Normal 136-145 [facility] Comment on above: Performed By: #### C MP #### [facility] [address] [address] [address] Delphine Small Urea nitrogen [Mass/Vol] 10.0 mg/dL Normal 6.4-19.3 [facility] Comment on above: Performed By: #### C MP #### [facility] [address] [address] [address] Delphine Small Urea nitrogen/Creatinine [Mass ratio] 14.3 mg/mg Normal [facility] Comment on above: Performed By: #### C MP #### [facility] [address] [address] [address] Delphine Small XR ABD FLAT UP_PA Osbaldo 12-11 XR ABD FLAT UP_PA ACUTE ABDOMINAL SERIES HISTORY: Abdominal pain TECHNIQUE: [...] by: TIM BARRETT Date: 2021-12-11 21:29 Normal [facility] Vital Signs Date Time Vital Sign Value Performing Clinician Facility 07-20-2024 14:49-0500 Body height 154.9 cm René Haro MD Work Phone: [facility] 07-20-2024 14:49-0500 Body mass index (BMI) [Ratio] 29.29 kg/m2 René Haro MD Work Phone: [facility] 07-20-2024 14:49-0500 Body temperature 97.11 [degF] René Haro MD Work Phone: [facility] 07-20-2024 14:49-0500 Body weight 70.31 kg René Haro MD Work Phone: [facility] 07-20-2024 14:49-0500 Diastolic blood pressure 60 mm[Hg] René Haro MD Work Phone: [facility] 07-20-2024 14:49-0500 Heart rate 102 /min René Haro MD Work Phone: [facility] 07-20-2024 14:49-0500 Respiratory rate 20 /min René Haro MD Work Phone: [facility] 07-20-2024 14:49-0500 SaO2% (BldA) [Mass fraction] 99 % René Haro MD Work Phone: [facility] 07-20-2024 14:49-0500 Systolic blood pressure 118 mm[Hg] René Haro MD Work Phone: [facility] 06-29-2024 13:15-0500 Body mass index (BMI) [Ratio] 29.74 kg/m2 René Haro MD Work Phone: [facility] 06-29-2024 13:15-0500 Body temperature 97.3 [degF] René Haro MD Work Phone: [facility] 06-29-2024 13:15-0500 Body weight 72.58 kg René Haro MD Work Phone: [facility] 06-29-2024 13:15-0500 Diastolic blood pressure 64 mm[Hg] René Haro MD Work Phone: [facility] 06-29-2024 13:15-0500 Heart rate 83 /min René Haro MD Work Phone: [facility] 06-29-2024 13:15-0500 SaO2% (BldA) [Mass fraction] 100 % René Haro MD Work Phone: [facility] 06-29-2024 13:15-0500 Systolic blood pressure 102 mm[Hg] René Haro MD Work Phone: [facility] 03-27-2024 12:26-0400 Body height 157.48 cm [facility] 03-27-2024 12:26-0400 Body mass index (BMI) [Ratio] 28.3 kg/m2 [facility] 03-27-2024 12:26-0400 Body temperature 98.2 [degF] [facility] 03-27-2024 12:26-0400 Body weight 70.3 kg [facility] 03-27-2024 12:26-0400 Diastolic blood pressure 71 mm[Hg] [facility] 03-27-2024 12:26-0400 Heart rate 80 /min [facility] 03-27-2024 12:26-0400 Respiratory rate 18 /min [facility] 03-27-2024 12:26-0400 SaO2% (BldA) [Mass fraction] 99 % [facility] 03-27-2024 12:26-0400 Systolic blood pressure 101 mm[Hg] [facility] 11-02-2023 18:09-0400 Body height 157.48 cm [facility] 11-02-2023 18:09-0400 Body mass index (BMI) [Ratio] 28.2 kg/m2 [facility] 11-02-2023 18:09-0400 Body temperature 99 [degF] [facility] 11-02-2023 18:09-0400 Body weight 69.96 kg [facility] 11-02-2023 18:09-0400 Heart rate 115 /min [facility] 11-02-2023 18:09-0400 Respiratory rate 18 /min [facility] 11-02-2023 18:09-0400 SaO2% (BldA) [Mass fraction] 98 % [facility] 04-24-2023 12:35-0500 Body height 157.48 cm Nadia Ankita Other [employer] [facility] [employer] Other 04-24-2023 12:35-0500 Body mass index (BMI) [Ratio] 26.48 kg/m2 Nadia Ankita Other [employer] Other 04-24-2023 12:35-0500 Body temperature 98.1 [degF] Nadia Catherinemond Other [employer] Other 04-24-2023 12:35-0500 Body weight 65.68 kg Nadia Ankita Other [employer] Other 04-24-2023 12:35-0500 Respiratory rate 18 /min Nadia Ankita Other [employer] Other 04-24-2023 12:35-0500 SaO2% (BldA) [Mass fraction] 97 % Nadia Ankita Other [employer] Other Encounters Encounter Date Encounter Type Care Provider Facility Start: 07-26-2024 End: 07-26-2024 Patient encounter procedure René Haro MD Work Phone: [facility] [address] Work Phone: Start: 07-26-2024 End: 07-26-2024 ambulatory René Haro MD Work Phone: [facility] Work Phone: Start: 07-20-2024 End: 07-20-2024 Office outpatient visit 25 minutes René Haro MD Work Phone: [facility] Comment on above: Arthralgia, unspecif ied joint (Primary Dx); Autonomic dysfunction; Forgetfulness; Vision changes; Dizziness Start: 07-20-2024 End: 07-20-2024 ambulatory RENÉ HARO Not Available Start: 07-20-2024 End: 07-20-2024 Bamboo flowsheet René Haro MD Work Phone: [facility] Start: 07-20-2024 End: 07-20-2024 Bamboo flowsheet René Haro MD Work Phone: [facility] Start: 07-04-2024 End: 07-04-2024 Orders Only René [...] 25 minutes René Haro MD Work Phone: [facility] Comment on above: Autonomic dysfunctio n (Primary Dx); Arthralgia, unspecified joint; Iron deficiency anemia, unspecified iron deficiency anemia type; Annual physical exam Start: 06-29-2024 End: 06-29-2024 Patient encounter procedure René Haro MD Work Phone: [facility] Start: 06-29-2024 End: 06-29-2024 ambulatory RENÉ HARO Not Available Start: 05-15-2024 End: 05-15-2024 Bamboo flowsheet Paradise L Elisa PA Work Phone: [facility] Start: 05-15-2024 End: 05-15-2024 Bamboo flowsheet Paradise L Elisa PA Work Phone: [facility] Start: 05-15-2024 End: 05-15-2024 ambulatory PARADISE L ELISA Not Available Start: 03-27-2024 End: 03-27-2024 ambulatory [facility] Work Phone: Start: 03-27-2024 End: 03-27-2024 Patient encounter procedure [facility] Work Phone: Start: 01-14-2024 End: 01-14-2024 ambulatory PARADISE L ELISA Not Available Start: 12-09-2023 End: 12-09-2023 ambulatory GRACE A RUSHER Not Available Start: 11-17-2023 End: 11-17-2023 ambulatory GRACE A RUSHER Not Available Start: 11-02-2023 End: 11-02-2023 ambulatory [facility] Work Phone: Start: 11-02-2023 End: 11-02-2023 Patient encounter procedure [facility] Work Phone: Start: 10-04-2023 End: 10-04-2023 ambulatory PARADISE L ELISA Not Available Start: 04-24-2023 End: 04-24-2023 ambulatory Nadia Luciano Other [employer] Other Start: 04-24-2023 Office outpatient vi sit 15 minutes Nadia Luciano [facility] Start: 12-11-2021 End: 12-12-[address] RENÉ HARO Facility:[facility] Procedures Date Procedure Procedure Detail Performing Clinician Start: 07-01-2024 ALL SED RATE René bay MD Work Phone: Start: 11-02-2023 Quick Strep (POC) Plan of Treatment Date Care Activity Detail Author Start: 12-04-2024 End: 12-04-2024 Patient encounter procedure 12/04/2024 10:30 AM EDT Office Visit [facility] [address] [place] [address] Paradise Pérez, PA [address] [place] [address] [facility] Start: 10-19-2024 End: 10-19-2024 Patient encounter procedure 10/19/2024 2:45 PM EDT Office Visit [facility] [address] [place] [id number] René Haro MD [address] [place] [id number] [facility] Start: 08-02-2024 End: 08-02-2024 Patient encounter procedure 08/02/2024 7:30 AM EST Office Visit [facility] [address] [place] [id number] René Haro MD [address] [place] [phone] [facility] Start: 07-26-2024 Hemolytic complement CH50 level [facility] Start: 07-26-2024 [facility] Start: 07-20-2024 End: 07-20-2024 Patient encounter procedure 07/20/2024 2:45 PM EST Office Visit [facility] [address] [place] [address] René Haro MD [address] [place] [address] Arrived [facility] Comment on above: Arrived Start: 07-20-2024 End: 07-20-2025 MR Brain WO and W contrast IV MR brain w and wo contrast routine Imaging Routine Forgetfulness Vision changes Dizziness Expected: 07/20/2024, Expires: 07/20/2025 [facility] Work Phone: Comment on above: Expected: 07/20/2024 , Expires: 07/20/2025 Start: 06-29-2024 End: 06-29-2025 Basic metabolic 1998 panel - Serum or Plasma Basic metabolic panel Lab Routine Arthralgia, unspecified joint Annual physical exam Expected: 06/29/2024 (Approximate), Expires: 06/29/2025 [facility] Comment on above: Expected: 06/29/2024 (Approximate), Expires: 06/29/2025 Start: 06-29-2024 End: 06-29-2025 CBC W Auto Differential panel - Blood CBC and differential Lab Routine Annual physical exam Expected: 06/29/2024 (Approximate), Expires: 06/29/2025 [facility] [facility] Comment on above: Expected: 06/29/2024 (Approximate), Expires: 06/29/2025 Start: 06-29-2024 End: 06-29-2025 Erythrocyte sedimentation rate Sedimentation rate, automated Lab Routine Arthralgia, unspecified joint Expected: 06/29/2024 (Approximate), Expires: 06/29/2025 [facility] Work Phone: Comment on above: Expected: 06/29/2024 (Approximate), Expires: 06/29/2025 Start: 06-29-2024 End: 06-29-2025 Ferritin [Mass/volume] in Serum or Plasma Ferritin Lab Routine Iron deficiency anemia, unspecified iron deficiency anemia type Expected: 06/29/2024 (Approximate), Expires: 06/29/2025 [facility] Comment on above: Expected: 06/29/2024 (Approximate), Expires: 06/29/2025 Start: 06-29-2024 End: 06-29-2025 Hepatic function 2000 panel - Serum or Plasma Hepatic function panel Lab Routine Annual physical exam Expected: 06/29/2024 (Approximate), Expires: 06/29/2025 [facility] Comment on above: Expected: 06/29/2024 (Approximate), Expires: 06/29/2025 Start: 06-29-2024 End: 06-29-2025 Iron and Iron binding capacity panel - Serum or Plasma Iron and TIBC Lab Routine Iron deficiency anemia, unspecified iron deficiency anemia type Expected: 06/29/2024 (Approximate), Expires: 06/29/2025 [facility] Comment on above: Expected: 06/29/2024 (Approximate), Expires: 06/29/2025 Start: 06-29-2024 End: 06-29-2025 Nuclear Ab [Titer] in Serum by Immunofluorescence NGOZI Lab Routine Arthralgia, unspecified joint Expected: 06/29/2024 (Approximate), Expires: 06/29/2025 [facility] Comment on above: Expected: 06/29/2024 (Approximate), Expires: 06/29/2025 Start: 06-29-2024 End: 06-29-2025 Rheumatoid factor [Units/volume] in Serum or Plasma Rheumatoid factor Lab Routine Arthralgia, unspecified joint Expected: 06/29/2024 (Approximate), Expires: 06/29/2025 [facility] Comment on above: Expected: 06/29/2024 (Approximate), Expires: 06/29/2025 Start: 06-29-2024 End: 06-29-2025 TSH W/REFLEX TO FT4 TSH W/REFLEX TO FT4 Lab Routine Annual physical exam Expected: 06/29/2024 (Approximate), Expires: 06/29/2025 [facility] Comment on above: Expected: 06/29/2024 (Approximate), Expires: 06/29/2025 Start: 06-29-2024 End: 06-29-2025 Urate [Mass/volume] in Serum or Plasma Uric acid Lab Routine Arthralgia, unspecified joint Expected: 06/29/2024 (Approximate), Expires: 06/29/2025 [facility] Comment on above: Expected: 06/29/2024 (Approximate), Expires: 06/29/2025 Start: 06-29-2024 End: 06-29-2024 Patient encounter procedure 06/29/2024 1:15 PM EST Office Visit [facility] [address] [place] [id number] René Haro MD [address] [place] [address] Arrived [facility] Comment on above: Arrived Start: 02-13-2024 Influenza vaccination Influenza Vacc ine (#1) [facility] Complement C3 [Mass/ volume] in Serum or Plasma [facility] Complement C4 [Mass/ volume] in Serum or Plasma [facility] RNA polymerase III I gG Ab [Units/volume] in Serum or Plasma by Immunoassay [facility] Immunizations Immunization Date Immunization Notes Care Provider [facility] 11-28-2019 meningococcal oligosaccharide (groups A, C, Y and W-135) diphtheria toxoid conjugate vaccine (MCV4O) Paradise SANTANA Work Phone: [facility] 06-27-2015 hepatitis A vaccine, pediatric/adolescent dosage, 2 dose schedule Paradise SANTANA Work Phone: [facility] 12-25-2014 hepatitis A vaccine, pediatric/adolescent dosage, 2 dose schedule Paradise SANTANA Work Phone: [facility] 12-25-2014 meningococcal oligosaccharide (groups A, C, Y and W-135) diphtheria toxoid conjugate vaccine (MCV4O) Paradise SANTANA Work Phone: [facility] 12-25-2014 tetanus toxoid, redu law diphtheria toxoid, and acellular pertussis vaccine, adsorbed Paradise SANTANA Work Phone: [facility] 12-25-2014 varicella virus vaccine Jessa Pérez PA Work Phone: [facility] 04-21-2013 influenza virus vacc ine, live, attenuated, for intranasal use Paradise Pérez PA Work Phone: [facility] 04-21-2013 influenza virus vacc ine, unspecified formulation Paradise Pérez PA Work Phone: [facility] 11-15-2007 diphtheria, tetanus toxoids and acellular pertussis vaccine Paradise Elisa PA Work Phone: [facility] 11-15-2007 poliovirus vaccine, inactivated Paradise Pérez PA Work Phone: [facility] 10-11-2004 diphtheria, tetanus toxoids and acellular pertussis vaccine, unspecified formulation Paradise Elisa PA Work Phone: [facility] 10-11-2004 measles, mumps and r ubella virus vaccine Paradise Pérez PA Work Phone: [facility] 07-11-2004 haemophilus influenz ae type b vaccine, conjugate unspecified formulation Paradise Pérez PA Work Phone: [facility] 07-11-2004 measles, mumps and r ubella virus vaccine Paradise Pérez PA Work Phone: [facility] 04-04-2004 varicella virus vaccine Jessa Pérez PA Work Phone: [facility] 2003 diphtheria, tetanus toxoids and acellular pertussis vaccine, unspecified formulation Paradise Pérez PA Work Phone: [facility] 2003 haemophilus influenz ae type b vaccine, conjugate unspecified formulation Paradise Pérez PA Work Phone: [facility] 2003 hepatitis B vaccine, pediatric or pediatric/adolescent dosage Paradise Pedersonans PA Work Phone: [facility] 2003 poliovirus vaccine, unspecified formulation Paradise Elisa PA Work Phone: [facility] 2003 diphtheria, tetanus toxoids and acellular pertussis vaccine, unspecified formulation Paradise Elisa PA Work Phone: [facility] 2003 haemophilus influenz ae type b vaccine, conjugate unspecified formulation Paradise Elisa PA Work Phone: [facility] 2003 pneumococcal conjuga te vaccine, 7 valent Paradise Elisa PA Work Phone: [facility] 2003 poliovirus vaccine, unspecified formulation Paradise Elisa PA Work Phone: [facility] 2003 diphtheria, tetanus toxoids and acellular pertussis vaccine, unspecified formulation Paradise Elisa PA Work Phone: [facility] 2003 haemophilus influenz ae type b vaccine, conjugate unspecified formulation Paradise Elisa PA Work Phone: [facility] 2003 hepatitis B vaccine, pediatric or pediatric/adolescent dosage Paradise Elisa PA Work Phone: [facility] 2003 pneumococcal conjuga te vaccine, 7 valent Paradise Elisa PA Work Phone: [facility] 2003 poliovirus vaccine, unspecified formulation Paradise Elisa PA Work Phone: [facility] 2003 hepatitis B vaccine, pediatric or pediatric/adolescent dosage Paradise Elisa PA Work Phone: [facility] Payers Date Payer Category Payer Self-pay 2022 Private Health Insurance [facility] [id number] 2022 Unknown [id number] 2003 Unknown [id number] 2.9 2003 Unknown [id number] 2.9 2003 Unknown [id number] [id number] 2003 Unknown [id number] 2.9 2003 Unknown [id number] [id number]. 2.9 2003 Unknown [id number]. 2.9 2003 Unknown [id number] [id number] 1978 Unknown [id number] [id number] 1959 Unknown [id number] Medicaid [place] Advantage [id number] Unknown [id number] Social History Date Type Detail Facility Unknown if ever smoked [facility] Other Start: 01-14-2024 End: 07-20-2024 Sex Assigned At [facility] Other Start: 11-02-2023 End: 11-02-2023 Tobacco smoking status NHIS Never smoked tobacco (finding) [facility] Start: 2003 Sex Assigned At Female F [facility] Start: 07-05-2023 Tobacco use and exposure Smokeless tobacco non-user [facility] Start: 01-14-2024 End: 07-20-2024 Alcoholic beverage intake Lifetime non-drinker (finding) [facility] Start: 01-14-2024 End: 07-20-2024 History of Social function [facility] Start: 2003 Sex assigned at Not on file N [facility] Start: 07-27-2024 Sex Female (finding) [facility] Clinical Notes 04-24-2023 to 07-20-2024 René Haro MD - 07/20/2024 3:30 PM Daija Haro MD - 07/20/2024 3:29 PM Daija Haro MD - 07/20/2024 3:28 PM Daija Haro MD - 07/20/2024 2:45 PM EST Note Date & Type Note Facility 07-20-2024 History of Presen t illness Narrative Associated Problem(s): Forgetfulness Occasional episodes of forgetfulness and vision changes. Still frequent dizziness and check MRI. Associated Problem(s): Autonomic dysfunction Symptoms improved with increased fluids and salt and continue. Associated Problem(s): Arthralgia Pain improved after toradol and overall better. Use celebrex PRN. Follow with rheumatology. Images from the original note were not included. Subjective Patient ID: Annette Malcolm is a 19 y.o. female who presents for Follow-up ([facility] er f/u) and Eye Problem (Spots in eyes). ER follow up from 07/09 for chest pain and SOB. C/o worsening pain all over. Pain in mid chest and into arm. SOB and hard to catch breath. To ER and CTA negative. Given toradol which helped. Reports overall pain improved after toradol. Labs showed positive NGOZI and scheduled with rheumatology. Still occasionally lightheaded but not as bad. Increased fluid and salt intake. Still occasional symptoms with changing position. Still with vision changes and will feel like vision going out or spots in eyes. Scheduled with eye doctor. Concerned of memory problems. Notice at times seems confused and forgetful. Forgets names and at times seems confused. Still occasional dizzy. Review of Systems Respiratory: Negative for cough, [...] Problem List Items Addressed This Visit Arthralgia - Primary Pain improved after toradol and overall better. Use celebrex PRN. Follow with rheumatology. Relevant Medications celecoxib (CeleBREX) 200 MG capsule Autonomic dysfunction Symptoms improved with increased fluids and salt and continue. Vision changes Relevant Orders MR brain w and wo contrast routine Forgetfulness Occasional episodes of forgetfulness and vision changes. Still frequent dizziness and check MRI. 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 covid-19 [facility] Work Phone: Evaluation note* Diagnosis Onset Date Resolution Status Viral URI with cough acute [facility] Work Phone: Evaluation note* Diagnosis Onset Date Resolution Status Contact with and (suspected) exposure to covid-19 noneactive [facility] Work Phone: Evaluation note* Diagnosis Autonomic dysfunction- Primary Arthralgia, unspecified joint Iron deficiency anemia, unspecified iron deficiency anemia type Annual physical exam Routine general medical examination at a health care facility [facility] Diagnosis Autonomic dysfunction- Primary Arthralgia, unspecified joint Iron deficiency anemia, unspecified iron deficiency anemia type Annual physical exam Routine general medical examination at a health care facility Positive NGOZI (antinuclear antibody)- Primary Other and unspecified nonspecific immunological findings [facility] Diagnosis Autonomic dysfunction- Primary Arthralgia, unspecified joint Iron deficiency anemia, unspecified iron deficiency anemia type Annual physical exam Routine general medical examination at a health care facility Arthralgia, unspecified joint- Primary Autonomic dysfunction Forgetfulness Other general symptoms Vision changes Dizziness Dizziness and giddiness [facility] noteNo assessment [facility] Work Phone: History general Narrative - Reported* Type Description Date Medical History Gastroesophageal reflux disease Medical History Asthma Medical History iron deficiency Surgical History wisdom teeth Hospitalization History rotovirus, dehydration 2 003 [facility] Other Summary Purpose Family History No Family History Records FoundNo Family History Records FoundNo Family History Records Found Advance Directives No Advanced Directives Records Found Advance Directive Response Recorded Date/ Time Advance Directives No November 01 4 6:01pm Advance Directive Response Recorded Date/ Time Advance Directives No November 01 4 5:01pm Chief Complaint and Reason for Visit Chief Complaint Sore throat, ear stephania n, congestion Reason for Visit Viral URI with cough Additional Source Comments INFORMATION SOURCE (unrecogn ized section and content) DATE CREATED AUTHOR 01/11/2022 [facility] DATE CREATED AUTHOR AUTHOR'S ORGANIZ ATION 07/23/2024 [facility] EPIC DATE CREATED AUTHOR AUTHOR'S ORGANIZ ATION 08/07/2024 [facility] REASON FOR VISIT (unrecogniz ed section and content) Reason Comments Dizziness Losing balance Extremity Weakness In legs and hands Reason Comments Follow-up [facility] er f/u Eye Problem Spots in eyes Care Teams (unrecognized sec tion and content) [...] March 27, 2024 End: March 27, 2024 Authorization Coordinator Relationship Specialty Start Date End Date René Haro MD [address] [place] [phone] PCP - General Family Medicine 04/14/23 Authorization Coordinator Relationship Specialty Start Date End Date René Haro MD [address] [place] [phone] PCP - General Family Medicine 04/14/23 Authorization Coordinator Relationship Specialty Start Date End Date René Haro MD [address] [place] [phone] PCP - General Family Medicine 04/14/23 Authorization Coordinator Relationship Specialty Start Date End Date René Haro MD [address] [place] [phone] PCP - General Family Medicine 04/14/23 Authorization Coordinator Relationship Specialty Start Date End Date René Haro MD [address] [place] [phone] PCP - General Family Medicine 04/14/23 Authorization Coordinator Relationship Specialty Start Date End Date René Haro MD [address] [place] [address] PCP - General Family Medicine 04/14/23 Authorization Coordinator Relationship Specialty Start Date End Date René Haro MD [address] [place] [phone] PCP - General Family Medicine 04/14/23 Team Status: Inactive Member Role Status Dates René Haro MD Primary Care Provider Active S tart: July 26, 2024 End: July 26, 2024 Kelsey Sandoval MD Attending Provider Active St art: July 26, 2024 End: July 26, 2024 Goals (unrecognized section and content) Goals may [...] BE BASED ON THE PRIMARY CLINICAL RECORDS. [facility] [employer] [facility] provides no warranty or guarantee of the accuracy or completeness of information in this document.
== END 2024-08-10 08:20 | disposition home or self-care (01) ==
LOC: MRI 08:19
PROVIDERS: PCP Family Medicine; Visit Provider Family Medicine
DX: R68.89 Other general symptoms and signs (principal); H53.9 Unspecified visual disturbance; R42 Dizziness and giddiness
CPT/HCPCS: 70553; A9575